=== PATIENT | female | born 1950 | race Caucasian/White ===

== ENCOUNTER → 2019-07-27 10:24 | Outpatient (BNVA) | payer OTHER, SELFPAY | PROVIDERS: Family Provider Family Medicine; PCP Family Medicine; Visit Provider Internal Medicine Rheumatology | DX: M05.9 Rheumatoid arthritis with rheumatoid factor, unspecified (principal); Z79.899 Other long term (current) drug therapy | CPT/HCPCS: 36415; 80076; 82306; 82565; 85651; 86140 ==

== ENCOUNTER → 2019-07-27 10:29 | Outpatient (BNVA) | payer OTHER, SELFPAY | PROVIDERS: Family Provider Family Medicine; PCP Family Medicine; Visit Provider Internal Medicine Rheumatology | DX: M05.79 Rheumatoid arthritis with rheumatoid factor of multiple sites without organ or systems involvement (principal); Z79.899 Other long term (current) drug therapy | CPT/HCPCS: 85025 ==

== ENCOUNTER 2019-09-21 09:56 | Outpatient (CLI) | payer OTHER, SELFPAY ==
[2019-09-21 10:06] VITALS: BP 126/83; PULSE 73; RESP 16; TEMP 36.8; O2SAT 98
[2019-09-21 10:45] VITALS: BP 132/87; PULSE 73; RESP 16
== END 2019-09-21 09:57 | disposition home or self-care (01) ==
LOC: RHEOACUTE 09:59
PROVIDERS: Family Provider Family Medicine; PCP Family Medicine; Visit Provider Internal Medicine Rheumatology
DX: M81.0 Age-related osteoporosis without current pathological fracture (principal)
CPT/HCPCS: 96365; J3489

== ENCOUNTER 2019-10-04 10:13 | Outpatient (CLI) | payer OTHER, SELFPAY ==
[2019-10-04 12:36] LABS: Basophils % 0.4 %; Eosinophils # 0.1 10^3/uL (0.0-0.8); Eosinophils % 2.1 %; Hematocrit 40.9 % (37.0-47.0); Hemoglobin 13.1 g/dL (11.5-15.3); Lymphocytes # 1.5 10^3/uL (0.8-4.8); Lymphocytes % 31.5 %; Mean Corpuscular Hemoglobin 29.2 pg (28.0-34.0); Mean Corpuscular Volume 91.3 fL (81-99); Mean Platelet Volume 9.2 fL (7.4-10.4); Monocytes # 0.5 10^3/uL (0.2-0.9); Monocytes % 9.9 %; Neutrophils # 2.6 10^3/uL (1.8-7.7); Neutrophils % 55.9 %; Nucleated Red Blood Cells % 0 %; Platelet Count 245 10^3/cmm (130-400); Red Blood Count 4.48 10^6/uL (4.1-5.3); Red Cell Distribution Width 13.3 % (12.1-15.1); White Blood Count 4.7 10^3/uL (4.0-10.0)
[2019-10-04 12:51] LABS: Alanine Aminotransferase 26 U/L (0-33); Albumin Level 4.1 g/dL (3.5-5.2); Alkaline Phosphatase 77 IU/L (35-105); Anion Gap 14.3 (5-19); Aspartate Amino Transferase 35 U/L (0-32); Blood Urea Nitrogen 8 mg/dL (8-23); Calcium 8.6 mg/dL (8.5-10.5); Carbon Dioxide 27 mmol/L (22-29); Chloride 93 mmol/L (98-107); Globulin 3.5 g/dL (1.3-4.6); Glomerular Filtration Rate 220.6 mL/min (90-130); Glucose 101 mg/dL (65-115); Immunoglobulin IGA 576 mg/dL (70-400); Immunoglobulin IGG 1617 mg/dL (700-1600); Immunoglobulin IGM 442 mg/dL (40-230); Lactate Dehydrogenase 222 U/L (135-214); Osmolality Calculated 266 mOsm/kg (285-295); Potassium 4.3 mmol/L (3.5-5.1); Sodium 130 mmol/L (136-145); Total Bilirubin 0.4 mg/dL (0.15-1.2); Total Protein 7.6 g/dL (6.6-8.7)
--- NOTE | 2019-10-04 18:46 | ONC CON_ITS ---
Dr. Rivero New Patient Note Patient: Hiwot Cash Unit #: [id number]: 1950 Dicatated By: Ralph Rivero M.D.Date of Visit: October 04, 2019 Onc MED New Patient/Consult Referring Physician: Dr. Bebo Gauthier M.D. Chief Complaint: Monoclonal gammopathy. History of Present Illness: This is a 69 year-old woman with IgM monoclonal gammopathy. This patient has a longstanding history of seropositive rheumatoid arthritis, initially diagnosed in her early 30s. Her disease has been controlled very well with Enbrel, which she initially started 20 years ago. During that time, she was able to taper off steroid therapy. She currently is being followed by Dr. Gauthier. I am asked to see her in regard to an IgM monoclonal gammopathy. This was discovered on a protein electrophoresis study in April 2015, which showed an IgM lambda paraprotein quantitating at 1.10 g/dL. At that time her CBC did show mild anemia with 11.1 g, but with hypochromic/microcytic red cell indices and with serum iron studies showing low transferrin saturation at 8.0%. She has since then been on oral iron supplementation. Her most recent laboratory studies, from 07/27/2019, included CBC showing hemoglobin 12.5 g, white blood cell count 5000, and platelet count 259,000. The red cell indices were normal. Sed rate was moderately elevated at 56 mm/hour with CRP slightly elevated at 5.2 mg/dL. She says that she has been feeling great. She has had significant improvement in her energy level since she started taking Geritol along with her oral iron supplement. She does have limited mobility with her RA, but she is able to do light work. Her ECOG score is 1. Her appetite has been good and her weight has been stable. She has no fever or night sweats. She has chronic sinus drainage and she has a morning cough associated with it. She does not complain of shortness of breath or chest pain. She has no GI or complaints. She does not have joint pain on the Enbrel. She does not complain of headache or dizziness. She has no numbness/paresthesia or other focal neurologic symptoms. Past Medical History: Her medical history includes osteoarthritis, osteoporosis, and rheumatoid arthritis. She also has a history of iron deficiency anemia. Past Surgical History: Her surgical/procedural history includes bilateral knee arthroscopy, right wrist repair in 2019, left hip replacement in 2014, right endoscopic sinus FESS in 2013, total left knee replacement in 2003, D&C in 1999, total right knee replacement in 1997, partial left hip replacement in 1996, corrective surgery on both feet in 1992, tenosynovectomy left hand in 1990, tenosynovectomy right hand in 1989, caesarean section in 1979, tubal ligation in 1979, and tonsillectomy in 1963. Medications: B Complex Plus 1 Tablet Oral daily, Calcium 1 Tablet (of 600 ) Oral b.i.d., calcium magnesium zinc 1 Tablet daily, Cetirizine HCl 1 Tablet (of 10 mg) Oral daily, Diclofenac Sodium 1 Tablet (of 75 mg) Tablet, enteric coated Oral daily, Enbrel 1 (50 mg/mL) Subcutaneous q 7 weeks, Ferrous Sulfate 3 Tablet (of 325 (65 fe) mg) Oral daily, Fish Oil 1 Capsule Oral daily, Flonase 2 Labelle(s) (of 50 mcg/act) Suspension Nasal daily, Multivitamin Adult 1 Tablet Oral daily, Omeprazole 1 Capsule (of 40 mg) Capsule Delayed Release Oral b.i.d., Reclast 1 Intravenous q 52 weeks, traMADol HCl 1 - 2 Tablet (of 50 mg) Oral daily PRN, vitamin b with iron 1 tsp Syrup Oral daily Allergies: Morphine Sulfate Social History: Ms. Cash is single and she is retired. She is a non-smoker. She does not drink alcohol. Family History: Father of emphysema at age 85. Mother at age 91 with chronic lung disease associated with asthma. A sister at age 21 with complications of asthma and apparently heart disease. A brother and another sister also have asthma. Two paternal uncles had lung cancer. Both had worked in a coal mine. Review Of Symptoms: Constitutional - She feels great, but her activity is limited. Appetite is good and weight is stable. No fever, chills, hot flashes, or night sweats. ECOG score is 1, Eyes - No change in vision, ENMT - She has hearing loss. No tinnitus. She has chronic sinus congestion/drainage. She occasionally has sore mouth. No sore throat or difficulty swallowing, Hematologic/Lymphatic - No abnormal bruising or bleeding, Respiratory - No shortness of breath. She has cough in the morning associated with her sinus drainage. No pleuritic pain or hemoptysis, Cardiovascular - No angina pain. No palpitations, Gastrointestinal - No nausea or vomiting. No heartburn or acid reflux. No diarrhea or constipation. No blood in the stool or black stools, Genitourinary (F) - No dysuria or hematuria. No urinary frequency. No urgency or incontinence, Musculoskeletal - She has chronic joint deformity and limited mobility, but she has no joint pain on the Enbrel, Integumentary - She has occasional flareups of eczema, Neurologic - No headache or dizziness. No numbness/paresthesias or other focal neurologic symptoms, Psychiatric - No anxiety or depression. No insomnia. Vital Signs: Performed on October 04, 2019 11:02: 0, 24.76, 1.54 sq.m, 60.00 in, 97 %, 73 /min, 18 /min, 149/91 mm(hg) (HIGH), 98.1 F (LOW), and 126.8 lbs (HIGH). Physical Examination: Constitutional - She looks pretty good generally, Eyes - Sclerae nonicteric. Conjunctivae clear, ENMT - No lesions noted in the oral cavity, Neck - No mass or thyromegaly, Hematologic/Lymphatic - No cervical, clavicular, or axillary adenopathy, Respiratory - Lungs are clear with good air movement bilaterally, Cardiovascular - Heart rhythm is regular. There is no murmur, gallop, or rub noted, Abdomen - Soft and non-tender. Liver and spleen are not enlarged. There is no abdominal mass or ascites noted and there is no inguinal adenopathy, Back/Spine - No spine or CVA tenderness noted, Extremities - No edema. There are severe RA changes in both hands and both feet. Dorsalis pedis are palpable bilaterally, Integumentary - No rashes. No suspicious skin lesions noted, Neurologic - No focal neurologic deficits noted. Impression: 1. Patient with IgM monoclonal gammopathy of undetermined significance. She does not appear to be symptomatic with it, but Waldenstrom's macroglobulinemia or other lymphoproliferative disorder would need to be excluded. 2. She has longstanding rheumatoid arthritis which has been well controlled on treatment with Enbrel. Her other medical illnesses include: 3. Osteoarthritis. 4. Osteoporosis. 5. She has a history of iron deficiency anemia. Plan: The laboratory findings and clinical implications were reviewed with the patient. She was found to have an IgM monoclonal protein in April 2015. The significance is uncertain. She has not previously had any evaluation for it. However, it does not appear to be symptomatic. At this point she will have additional laboratory studies to include CBC, comprehensive metabolic profile, RA titer, repeat protein electrophoresis with immunofixation, quantitative immunoglobulin levels, and a serum viscosity study. If she is confirmed to have a monoclonal M protein, she will be scheduled for CT scans of the chest, abdomen, and pelvis. Based on those findings, I will determine then whether to schedule her for bone marrow aspiration/biopsy. However, in the setting of asymptomatic disease, she will likely be followed on observation/expectant management. Signed By: Ralph Rivero M.D. <<Signature on File>>
[2019-10-05 10:12] LABS: PROTEIN, TOTAL 7.5 g/dL (6.1-8.1)
[2019-10-05 13:37] LABS: ALBUMIN 3.8 g/dL (3.8-4.8); ALPHA 1 GLOBULIN 0.3 g/dL (0.2-0.3); ALPHA 2 GLOBULIN 0.7 g/dL (0.5-0.9); BETA 1 GLOBULIN 0.5 g/dL (0.4-0.6); BETA 2 GLOBULIN 0.6 g/dL (0.2-0.5); GAMMA GLOBULIN 1.7 g/dL (0.8-1.7)
== END 2019-10-04 10:14 | disposition home or self-care (01) ==
PROVIDERS: PCP Family Medicine; Referring Provider Internal Medicine Rheumatology; Visit Provider Internal Medicine Medical Oncology
DX: D47.2 Monoclonal gammopathy (principal); M06.9 Rheumatoid arthritis, unspecified; M19.90 Unspecified osteoarthritis, unspecified site; M81.0 Age-related osteoporosis without current pathological fracture; Z79.899 Other long term (current) drug therapy; Z86.2 Personal history of diseases of the blood and blood-forming organs and certain disorders involving the immune mechanism
CPT/HCPCS: 80053; 82784; 83615; 84155; 84165; 85025; 85810; 86431; 99205

== ENCOUNTER → 2020-02-14 15:53 | Outpatient (BNVA) | payer OTHER, SELFPAY | PROVIDERS: PCP Family Medicine; Visit Provider Internal Medicine Rheumatology | DX: M05.79 Rheumatoid arthritis with rheumatoid factor of multiple sites without organ or systems involvement (principal); M81.0 Age-related osteoporosis without current pathological fracture; Z79.899 Other long term (current) drug therapy | CPT/HCPCS: 99214 ==

== ENCOUNTER → 2020-02-15 13:17 | Outpatient (BNVA) | payer OTHER, SELFPAY | PROVIDERS: PCP Family Medicine; Visit Provider Internal Medicine Rheumatology | DX: Z79.899 Other long term (current) drug therapy (principal) | CPT/HCPCS: 36415; 80076; 82306; 82565; 85025; 85651; 86140 ==

== ENCOUNTER 2020-03-01 14:09 | Outpatient (CLI) | payer OTHER, SELFPAY ==
--- NOTE | 2020-03-01 14:16 | XR_ITS ---
WS: [id number] Right hip, AP and frog leg views, AP pelvis, 03/01/2020 Clinical Data: PAIN IN R HIP Comparison: None. Findings: Bilateral hip arthroplasties are in position. The right hip arthroplasty shows no loosening. There is a transverse line in the proximal right femur and the patient could have a cortical fracture which has occurred recently. No displacement is seen. The SI joints and pubic symphysis are unremarkable. There is an old left ischial ramus fracture. The bladder is full. There is fecal material in the colon and rectum. XR/XR hip RT 2-3V wo/w pel* [id number] Impression: 1. Possible undisplaced cortical fracture of the proximal right femur. Recommen d comparing old studies if available. 2. Bilateral hip arthroplasties.
== END 2020-03-01 14:10 | disposition home or self-care (01) ==
LOC: RAD 14:12
PROVIDERS: PCP Family Medicine; Visit Provider Family Medicine
DX: M25.551 Pain in right hip (principal); Z96.643 Presence of artificial hip joint, bilateral
CPT/HCPCS: 73502

== ENCOUNTER → 2020-06-11 10:00 | Outpatient (BNVA) | payer OTHER, SELFPAY | PROVIDERS: PCP Family Medicine; Visit Provider Internal Medicine Rheumatology | DX: Z79.899 Other long term (current) drug therapy (principal); M19.90 Unspecified osteoarthritis, unspecified site; Z51.81 Encounter for therapeutic drug level monitoring | CPT/HCPCS: 36415; 80076; 82565; 85025; 85651; 86140 ==

== ENCOUNTER 2020-09-11 10:38 | Outpatient (CLI) | payer OTHER, SELFPAY ==
--- NOTE | 2020-09-11 11:59 | ONC FU_ITS ---
Dr. Rivero Patient Follow-Up Note Patient: Hiwot Cash Unit #: [id number]: 1950 Dicatated By: Ralph Rivero M.D.Date of Visit:September 11, 2020 Onc Med Follow-up/Prog Note Chief Complaint: Monoclonal gammopathy. History of Present Illness: This is a 70 year-old woman with IgM monoclonal gammopathy. This patient has a longstanding history of seropositive rheumatoid arthritis, initially diagnosed in her early 30s. Her disease has been controlled very well with Enbrel, which she initially started 20 years ago. During that time, she was able to taper off steroid therapy. She is being followed by Dr. Gauthier. I had initially seen her in August 2020 in regard to an IgM monoclonal gammopathy. It wa first discovered on a protein electrophoresis study in April 2015, which showed an IgM lambda paraprotein quantitating at 1.10 g/dL. At that time her CBC did show mild anemia with 11.1 g, but with hypochromic/microcytic red cell indices and with serum iron studies showing low transferrin saturation at 8.0%. She then began on oral iron supplementation. Her laboratory studies from September 2019 included CBC showing hemoglobin 13.1 g with white blood cell count 4700 and platelet count 245,000. The red cell indices were normal. Comprehensive metabolic profile showed normal renal function with BUN 8 and creatinine 0.3 mg/dL. The SGOT was slightly elevated at 35/30 2U/L. The other liver enzymes were normal. LDH was slightly elevated at 220 2U/L. Protein electrophoresis showed no evidence of monoclonal protein. Her quantitative immunoglobulin levels showed IgG 1617 mg/dL, IgA 576 mg/dL, and IgM 442 mg/dL. With those findings, I did not recommend any further evaluation. On a recent followup visit with Dr. Bose her CBC showed normal hemoglobin 13.5 g but with her serum iron studies showing low transferrin saturation at 15%. Her TSH level was mildly elevated, and she did start replacement therapy with levothyroxine. She also was noted to have a lesion on her tongue, and she will be seeing Dr. Guillermo Corrales next week to have that evaluated. She is seen now for a follow-up visit. She has noted improvement in her energy since she started on the levothyroxine. She still has some fatigue, and she has daily horizontal time every afternoon for 15 to 20 minutes. Appetite is somewhat variable, but generally pretty good. Her weight is stable. She has no fever or night sweats. She always has sinus drainage. She does not report having sore mouth or throat, and she has no difficulty swallowing. She has no shortness of breath, cough, or chest pain. She has occasional acid reflux symptoms. She has no other GI or complaints. She says her shoulders are acting their age . She has no other joint or bone pain. She does not complain of headache. She sometimes has dizziness. She has no numbness/paresthesia or other focal neurologic symptoms. Medications: B Complex Plus 1 Tablet Oral daily, Calcium 1 Tablet (of 600 ) Oral b.i.d., calcium magnesium zinc 1 Tablet daily, Cetirizine HCl 1 Tablet (of 10 mg) Oral daily, Enbrel 1 (50 mg/mL) Subcutaneous q 7 weeks, Ferrous Sulfate 3 Tablet (of 325 (65 fe) mg) Oral daily, Fish Oil 1 Capsule Oral daily, Flonase 2 Frost(s) (of 50 mcg/act) Suspension Nasal daily, Levothyroxine Sodium 1 Tablet (of 25 mcg) Oral daily, Multivitamin Adult 1 Tablet Oral daily, Reclast 1 Intravenous q 52 weeks, traMADol HCl 1 - 2 Tablet (of 50 mg) Oral daily PRN Allergies: Morphine Sulfate Vital Signs: Performed on September 11, 2020 11:04 Height - 60.00 in Weight - 126.6 lbs (LOW) BSA - 1.54 sq.m BMI - 24.73 Temperature - 98.8 F Pulse - 78 /min Respiration - 17 /min BP - 129/84 mm(hg) O2 Sat - 98 % Pain - 0 Physical Examination: Constitutional - She looks pretty good generally, Eyes - Sclerae nonicteric. Conjunctivae clear, ENMT - There is a small lesion on the right lateral border of the tongue. There is a slight white discoloration associated with it, Hematologic/Lymphatic - No cervical, clavicular, or axillary adenopathy, Respiratory - Lungs are clear with good air movement bilaterally, Cardiovascular - Heart rhythm is regular with occasional premature beats. There is no murmur, gallop, or rub noted, Abdomen - Soft and non-tender. Liver and spleen are not enlarged. There is no abdominal mass or ascites noted and there is no inguinal adenopathy, Extremities - No edema. There are severe RA changes in both hands and both feet, Neurologic - No focal neurologic deficits noted. Problem List: 1. Patient with IgM monoclonal gammopathy of undetermined significance. She does not appear to be symptomatic with it, but Waldenstrom's macroglobulinemia or other lymphoproliferative disorder would need to be excluded. 2. She has a history of iron deficiency anemia. 3. She has longstanding rheumatoid arthritis which has been well controlled on treatment with Enbrel. 4. Osteoarthritis. 5. Osteoporosis. 6. Hypothyroidism. Problems Addressed with this Encounter and Plan: 1. Patient with IgM monoclonal gammopathy of undetermined significance. This had previously been detectable by protein electrophoresis, but it was not evident on a repeat study in September 2019. As such, it may just be related to her underlying autoimmune disease. At this point I will recheck her serum protein electrophoresis, serum free light chain assay, and quantitative immunoglobulin levels. She will have further evaluation as indicated. 2. She has a history of iron deficiency anemia. Her recent laboratory studies showed evidence of iron deficiency with transferrin saturation 15%. Her hemoglobin/hematocrit levels have just been borderline low to slightly decreased. I will repeat her CBC, CMP, serum iron studies, and ferritin today. In addition, I will check B12 and folate levels. She will have further evaluation as indicated. 3. She has lesion on the right lateral border of the tongue. There is some associated whitish discoloration. I will treat that empirically with nystatin. She is going to have ENT evaluation with Dr. Guillermo Corrales next week. Signed By: Ralph Rivero M.D. <<Signature on File>>
[2020-09-11 12:22] LABS: Basophils % 0.7 %; Eosinophils # 0.2 10^3/uL (0.0-0.8); Hematocrit 41.3 % (37.0-47.0); Hemoglobin 13.3 g/dL (11.5-15.3); Lymphocytes # 1.3 10^3/uL (0.8-4.8); Lymphocytes % 31.8 %; Mean Corpuscular HGB Conc 32.2 g/dL (30.0-36.0); Mean Corpuscular Hemoglobin 29.2 pg (28.0-34.0); Mean Corpuscular Volume 90.8 fL (81-99); Mean Platelet Volume 9.6 fL (7.4-10.4); Monocytes # 0.5 10^3/uL (0.2-0.9); Monocytes % 12.2 %; Neutrophils # 2.06 10^3/uL (1.8-7.7); Neutrophils % 51.1 %; Nucleated Red Blood Cells % 0 %; Platelet Count 227 10^3/cmm (130-400); Red Blood Count 4.55 10^6/uL (4.1-5.3); Red Cell Distribution Width 13.2 % (12.1-15.1)
[2020-09-11 12:32] LABS: Alanine Aminotransferase 18 U/L (0-33); Albumin Level 3.7 g/dL (3.5-5.2); Alkaline Phosphatase 77 IU/L (35-105); Anion Gap 10.1 (5-19); Aspartate Amino Transferase 28 U/L (0-32); Blood Urea Nitrogen 6 mg/dL (8-23); C Reactive Protein 6.4 mg/L (0.0-4.9); Calcium 9.1 mg/dL (8.5-10.5); Carbon Dioxide 30 mmol/L (22-29); Chloride 98 mmol/L (98-107); Ferritin 347 ng/mL (15-150); Globulin 3.7 g/dL (1.3-4.6); Glomerular Filtration Rate 219.9 mL/min (90-130); Glucose 99 mg/dL (65-115); Iron 42 ug/dL (37-145); Osmolality Calculated 276 mOsm/kg (285-295); Potassium 4.1 mmol/L (3.5-5.1); Sodium 134 mmol/L (136-145); Total Bilirubin 0.4 mg/dL (0.15-1.2); Total Iron Binding Capacity 209 mcg/dl; Total Protein 7.4 g/dL (6.6-8.7); Unsaturated Iron Binding 167 ug/dL (112-347)
[2020-09-11 12:45] LABS: Vitamin B12 1218 pg/mL (232-1245)
[2020-09-11 13:12] LABS: Folate Level > 20.0 ng/mL (4.8-37.3)
[2020-09-11 13:26] LABS: Immunoglobulin IGA 584 mg/dL (70-400); Immunoglobulin IGG 1630 mg/dL (700-1600); Immunoglobulin IGM 444 mg/dL (40-230)
[2020-09-11 15:16] LABS: Erythrocyte Sedimentation Rate 70 mm/hr (0-15)
[2020-09-12 07:42] LABS: PROTEIN, TOTAL 7.5 g/dL (6.1-8.1)
[2020-09-12 15:28] LABS: ALBUMIN 3.6 g/dL (3.8-4.8); ALPHA 1 GLOBULIN 0.3 g/dL (0.2-0.3); ALPHA 2 GLOBULIN 0.6 g/dL (0.5-0.9); BETA 1 GLOBULIN 0.6 g/dL (0.4-0.6); BETA 2 GLOBULIN 0.6 g/dL (0.2-0.5); GAMMA GLOBULIN 1.8 g/dL (0.8-1.7)
[2020-09-12 16:03] LABS: KAPPA LIGHT CHAIN, FREE, SERUM 53.6 mg/L (3.3-19.4); KAPPA/LAMBDA LIGHT CHAINS FREE 1.39 (0.26-1.65); LAMBDA LIGHT CHAIN, FREE, SERU 38.7 mg/L (5.7-26.3)
== END 2020-09-11 10:39 | disposition home or self-care (01) ==
PROVIDERS: PCP Family Medicine; Visit Provider Internal Medicine Medical Oncology
DX: C88.0 Waldenstrom macroglobulinemia (principal); D47.2 Monoclonal gammopathy; D50.9 Iron deficiency anemia, unspecified; D51.9 Vitamin B12 deficiency anemia, unspecified; M06.9 Rheumatoid arthritis, unspecified; M81.0 Age-related osteoporosis without current pathological fracture; E03.9 Hypothyroidism, unspecified; Z79.899 Other long term (current) drug therapy
CPT/HCPCS: 36415; 80053; 82607; 82728; 82746; 82784; 83540; 83550; 83883; 84155; 84165; 85025; 85651; 86140; 99214

== ENCOUNTER 2020-09-16 14:42 | Outpatient (CLI) | payer OTHER, SELFPAY ==
--- NOTE | 2020-09-16 15:15 | XR_ITS ---
WS: [id number] SCREENING DEXA SCAN [facility] CLINICAL INFORMATION: M81.0 - Age-related osteoporosis without current pathological fracture COMPARISON: FINDINGS: The L1-L4 bone mineral density measures 0.815 g/cm2. This corresponds to a T score score of -3.0 and Z score of -1.1. History of bilateral ALMAZ and prior hardware fusion forearm XR/XR DEXA axial skeleton* [id number] IMPRESSION: Osteoporosis
== END 2020-09-16 14:43 | disposition home or self-care (01) ==
LOC: RADWPI 14:45
PROVIDERS: PCP Family Medicine; Visit Provider Internal Medicine Rheumatology
DX: M81.0 Age-related osteoporosis without current pathological fracture (principal); Z79.899 Other long term (current) drug therapy; M05.79 Rheumatoid arthritis with rheumatoid factor of multiple sites without organ or systems involvement
CPT/HCPCS: 77080

== ENCOUNTER 2020-09-27 15:10 | Emergency (ER) | payer OTHER, SELFPAY ==
--- NOTE | 2020-09-27 | XRR_ITS ---
PROCEDURE INFORMATION: Exam: XR Chest Exam date and time: 09/27/2020 5:59 PM Age: 70 years old Clinical indication: Cough and dyspnea; Patient HX: PT feels light headed/dizzy, could not find keys on keyboard. Fell/hit head 08/14/20 TECHNIQUE: Imaging protocol: XR of the chest. Views: 1 view. COMPARISON: CR Chest 2 views* [id number] 03/08/2014 4:07 PM FINDINGS: Lungs: There is increased interstitial prominence compared to the prior exam compatible with mild fibrosis, bronchitis, viral pneumonitis or mild interstitial edema. The lungs are hyperinflated compatible with COPD. No lobar consolidation. Pleural spaces: Unremarkable. No pleural effusion. No pneumothorax. Heart/Mediastinum: There is borderline cardiomegaly. Vasculature: The aorta is ectatic with atherosclerotic calcifications. Bones/joints: Severe degenerative changes and deformity of both glenohumeral joints are noted unchanged since the prior exam. The findings on the right could reflect Charcot deformity. No acute bony abnormality. XR/XR chest 1V portable [id number] IMPRESSION: There is increased interstitial prominence compared to the prior exam compatible with mild fibrosis, bronchitis, viral pneumonitis or mild interstitial edema.
[2020-09-27 15:17] VITALS: BP 146/89; PULSE 103; RESP 18; TEMP 36.8; O2SAT 97; BMI 24.4
--- NOTE | 2020-09-27 16:15 | ECG_ITS ---
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
[2020-09-27 16:20] VITALS: BP 152/79; PULSE 90; RESP 18; O2SAT 98
--- NOTE | 2020-09-27 16:41 | W.ED.AMS ---
Documented by User: Chino Marcus DO 10/02/20 07:17 HPI - Altered Mental Status General: Chief Complaint: Altered Mental Status Stated Complaint: SUDDEN MEMORY LOSS/SENT BY PCP OFFICE Time Seen by Provider: 09/27/20 16:14 History of Present Illness: HPI narrative: 70-year-old female presents to the emergency room with complaint of sudden memory loss. States she could not do it normally do everything and she has been able to remember and do everything else today with the exception of while she was sitting down typewriter she cannot remember where the keys different letters were. She has very severe rheumatoid arthritis. She states she has not had any chest pain she not had any shortness of breath no trauma no falls recently. No fever sweats chills. MD complaint: altered mental status and confusion Onset (ago): hour(s) Severity: mild Associated symptoms: Deny auditory hallucinations, visual hallucinations, delusions, depression, homicidal ideation, racing thoughts or suicidal ideation Review of Systems Const: Denies: fever(s), chills, body aches, change in appetite, fatigue or malaise ENMT: Denies: throat pain, ear or mastoid pain, nasal discharge or nasal congestion Card: Denies: chest pain, edema, dyspnea on exertion or orthopnea Resp: Denies: dyspnea, productive cough or non-productive cough GI: Denies: abdominal pain, nausea, vomiting, hematemesis, coffee ground emesis, diarrhea, constipation, bloating, hematochezia or melena : Denies: flank pain, difficulty voiding, dysuria, urinary frequency or urinary urgency Skin/Breast: Denies: rash or pruritus Psych: Denies: depression, visual hallucinations, auditory hallucinations, suicidal ideation or homicidal ideation PFS ED PFSH: Medical History High risk medication use History of revision of total replacement of left hip joint Immunization counseling Immunosuppression Osteoarthritis of left shoulder Osteoporosis Seropositive rheumatoid arthritis of multiple joints Surgical History History of bilateral hip replacements History of bilateral knee arthroplasty Social History Smoking and tobacco status: never smoked Alcohol intake: never Physical Exam Psych: THOUGHT CONTENT: No delusions Course Vital Signs: Vital signs: Vital Signs Temperature 98.2 F 09/27/20 15:17 Pulse Rate 85 09/27/20 19:58 Respiratory Rate 16 09/27/20 19:58 Blood Pressure 135/84 09/27/20 19:58 Pulse Oximetry 98 09/27/20 19:58 MDM - Altered Mental Status MDM Narrative: Medical decision making narrative: Patient has severe rheumatoid arthritis. She her stroke score is 0. She had a transient episode of memory loss she describes as brain fog. She was dizzy and lightheaded. Head CT is unremarkable were still waiting on some other lab work care turned over to Dr. Boyce at change of shift. Lab Data: Labs: Lab Results 09/27/20 09/27/20 09/27/20 Range/Units 16:35 16:55 16:55 WBC 5.5 (4.0-10.0) 10^3/ uL RBC 4.48 (4.1-5.3) 10^6/u L Hgb 12.9 (11.5-15.3) g/dL Hct 39.9 (37.0-47.0) % MCV 89.1 (81-99) fL MCH 28.8 (28.0-34.0) pg MCHC 32.3 (30.0-36.0) g/dL RDW 13.2 (12.1-15.1) % Plt Count 202 (130-400) 10^3/c mm MPV 10.0 (7.4-10.4) fL Neut % (Auto) 59.7 % Lymph % (Auto) 25.3 % Alger % (Auto) 13.0 % Eos % (Auto) 1.4 % Baso % (Auto) 0.4 % Neut # (Auto) 3.31 (1.8-7.7) 10^3/u L Lymph # (Auto) 1.4 (0.8-4.8) 10^3/u L Alger # (Auto) 0.7 (0.2-0.9) 10^3/u L Eos # (Auto) 0.1 (0.0-0.8) 10^3/u L Baso # (Auto) 0.0 (0.0-0.1) 10^3/u L Nucleated RBC % (a uto) 0 % Nucleated RBCs # 0.0 /100WBC Specimen Type Arterial Sample Site Radial, right ABG pH 7.47 H (7.35-7.45) ABG pCO2 40.1 (35-45) mmHg ABG pO2 85.0 (80.0-100.0) mmH g ABG HCO3 29.2 H (22-26) mmol/L ABG O2 Saturation 97.9 ABG Base Excess 5.2 H (-2.0-2.0) mmol/ L Phillip Test Pos A-a O2 Gradient 2.1 L (5-10) mmHg Hematocrit 44.9 (37-47) % Hgb O2 Saturation 96.4 (95-100) % Carboxyhemoglobin 0.9 (0.4-20.1) %THgb Methemoglobin 0.7 (0.4-1.5) % Total Hemoglobin 14.7 (12-16) g/dL Sodium 133.0 (131-143) mmol/L Potassium 3.9 (3.5-5.0) mmol/L Glucose 186.0 H (70-115) mg/dL Ionized Calcium 1.2 (1.1-1.4) mmol/L O2 Delivery Device Room air FiO2 21.0 % [employer] Member ID Gd Chloride (98-107) mmol/L Carbon Dioxide (22-29) mmol/L Anion Gap (5-19) BUN (8-23) mg/dL Creatinine (0.5-0.9) mg/dL GFR Calculation (90-130) mL/min Calculated Osmolal ity (285-295) mOsm/k g Lactic Acid 1.5 (0.5-2.2) mmol/L Calcium (8.5-10.5) mg/dL Total Bilirubin (0.15-1.2) mg/dL AST (0-32) U/L ALT (0-33) U/L Alkaline Phosphata se (35-105) IU/L Creatine Kinase (26-192) U/L Troponin T Baselin e (0-10) ng/L Troponin T 120 Min augustine (0-10) ng/L Delta Troponin T (0-10) ABS# Total Protein (6.6-8.7) g/dL Albumin (3.5-5.2) g/dL Globulin (1.3-4.6) g/dL Lipase (13-60) U/L Urine Color (Yellow) Urine Appearance (CLEAR) Urine pH (5-7) Ur Specific Gravit y (1.005-1.030) Urine Protein (Negative) Urine Glucose (UA) (Normal) Urine Ketones (Negative) Urine Blood (Negative) Urine Nitrate (Negative) Urine Bilirubin (Negative) Urine Urobilinogen (Negative) mg/dL Ur Leukocyte Yojana ase (Negative) Urine RBC (0-2) /hpf Urine WBC (0-5) /hpf Ur Squamous Epith Cells (0-5) /hpf Amorphous Sediment Urine Bacteria (NONE) /hpf 09/27/20 09/27/20 09/27/20 Range/Units 16:55 16:55 17:23 WBC (4.0-10.0) 10^3/ uL RBC (4.1-5.3) 10^6/u L Hgb (11.5-15.3) g/dL Hct (37.0-47.0) % MCV (81-99) fL MCH (28.0-34.0) pg MCHC (30.0-36.0) g/dL RDW (12.1-15.1) % Plt Count (130-400) 10^3/c mm MPV (7.4-10.4) fL Neut % (Auto) % Lymph % (Auto) % Alger % (Auto) % Eos % (Auto) % Baso % (Auto) % Neut # (Auto) (1.8-7.7) 10^3/u L Lymph # (Auto) (0.8-4.8) 10^3/u L Alger # (Auto) (0.2-0.9) 10^3/u L Eos # (Auto) (0.0-0.8) 10^3/u L Baso # (Auto) (0.0-0.1) 10^3/u L Nucleated RBC % (a uto) % Nucleated RBCs # /100WBC Specimen Type Sample Site ABG pH (7.35-7.45) ABG pCO2 (35-45) mmHg ABG pO2 (80.0-100.0) mmH g ABG HCO3 (22-26) mmol/L ABG O2 Saturation ABG Base Excess (-2.0-2.0) mmol/ L Phillip Test A-a O2 Gradient (5-10) mmHg Hematocrit (37-47) % Hgb O2 Saturation (95-100) % Carboxyhemoglobin (0.4-20.1) %THgb Methemoglobin (0.4-1.5) % Total Hemoglobin (12-16) g/dL Sodium 132 L (131-143) mmol/L Potassium 4.2 (3.5-5.0) mmol/L Glucose 169 H (70-115) mg/dL Ionized Calcium (1.1-1.4) mmol/L O2 Delivery Device FiO2 % [employer] Member ID Chloride 95 L (98-107) mmol/L Carbon Dioxide 24 (22-29) mmol/L Anion Gap 17.2 (5-19) BUN 9 (8-23) mg/dL Creatinine 0.3 L (0.5-0.9) mg/dL GFR Calculation 219.9 H (90-130) mL/min Calculated Osmolal ity 277 L (285-295) mOsm/k g Lactic Acid (0.5-2.2) mmol/L Calcium 8.8 (8.5-10.5) mg/dL Total Bilirubin 0.4 (0.15-1.2) mg/dL AST 33 H (0-32) U/L ALT 18 (0-33) U/L Alkaline Phosphata se 64 (35-105) IU/L Creatine Kinase 144 (26-192) U/L Troponin T Baselin e 19 H (0-10) ng/L Troponin T 120 Min augustine (0-10) ng/L Delta Troponin T (0-10) ABS# Total Protein 7.6 (6.6-8.7) g/dL Albumin 3.8 (3.5-5.2) g/dL Globulin 3.8 (1.3-4.6) g/dL Lipase 24 (13-60) U/L Urine Color Yellow (Yellow) Urine Appearance Clear (CLEAR) Urine pH 6 (5-7) Ur Specific Gravit y 1.015 (1.005-1.030) Urine Protein Neg (Negative) Urine Glucose (UA) Norm (Normal) Urine Ketones Negative (Negative) Urine Blood 2+ H (Negative) Urine Nitrate Negative (Negative) Urine Bilirubin Neg (Negative) Urine Urobilinogen Norm (Negative) mg/dL Ur Leukocyte Yojana ase Trace H (Negative) Urine RBC 0-4 H (0-2) /hpf Urine WBC 0-4 H (0-5) /hpf Ur Squamous Epith Cells 0-4 H (0-5) /hpf Amorphous Sediment Not Reportable Urine Bacteria Trace (NONE) /hpf 09/27/20 Range/Units 19:00 WBC (4.0-10.0) 10^3/ uL RBC (4.1-5.3) 10^6/u L Hgb (11.5-15.3) g/dL Hct (37.0-47.0) % MCV (81-99) fL MCH (28.0-34.0) pg MCHC (30.0-36.0) g/dL RDW (12.1-15.1) % Plt Count (130-400) 10^3/c mm MPV (7.4-10.4) fL Neut % (Auto) % Lymph % (Auto) % Alger % (Auto) % Eos % (Auto) % Baso % (Auto) % Neut # (Auto) (1.8-7.7) 10^3/u L Lymph # (Auto) (0.8-4.8) 10^3/u L Alger # (Auto) (0.2-0.9) 10^3/u L Eos # (Auto) (0.0-0.8) 10^3/u L Baso # (Auto) (0.0-0.1) 10^3/u L Nucleated RBC % (a uto) % Nucleated RBCs # /100WBC Specimen Type Sample Site ABG pH (7.35-7.45) ABG pCO2 (35-45) mmHg ABG pO2 (80.0-100.0) mmH g ABG HCO3 (22-26) mmol/L ABG O2 Saturation ABG Base Excess (-2.0-2.0) mmol/ L Phillip Test A-a O2 Gradient (5-10) mmHg Hematocrit (37-47) % Hgb O2 Saturation (95-100) % Carboxyhemoglobin (0.4-20.1) %THgb Methemoglobin (0.4-1.5) % Total Hemoglobin (12-16) g/dL Sodium (131-143) mmol/L Potassium (3.5-5.0) mmol/L Glucose (70-115) mg/dL Ionized Calcium (1.1-1.4) mmol/L O2 Delivery Device FiO2 % [employer] Member ID Chloride (98-107) mmol/L Carbon Dioxide (22-29) mmol/L Anion Gap (5-19) BUN (8-23) mg/dL Creatinine (0.5-0.9) mg/dL GFR Calculation (90-130) mL/min Calculated Osmolal ity (285-295) mOsm/k g Lactic Acid (0.5-2.2) mmol/L Calcium (8.5-10.5) mg/dL Total Bilirubin (0.15-1.2) mg/dL AST (0-32) U/L ALT (0-33) U/L Alkaline Phosphata se (35-105) IU/L Creatine Kinase (26-192) U/L Troponin T Baselin e (0-10) ng/L Troponin T 120 Min augustine 17.52 H (0-10) ng/L Delta Troponin T -1.48 L (0-10) ABS# Total Protein (6.6-8.7) g/dL Albumin (3.5-5.2) g/dL Globulin (1.3-4.6) g/dL Lipase (13-60) U/L Urine Color (Yellow) Urine Appearance (CLEAR) Urine pH (5-7) Ur Specific Gravit y (1.005-1.030) Urine Protein (Negative) Urine Glucose (UA) (Normal) Urine Ketones (Negative) Urine Blood (Negative) Urine Nitrate (Negative) Urine Bilirubin (Negative) Urine Urobilinogen (Negative) mg/dL Ur Leukocyte Yojana ase (Negative) Urine RBC (0-2) /hpf Urine WBC (0-5) /hpf Ur Squamous Epith Cells (0-5) /hpf Amorphous Sediment Urine Bacteria (NONE) /hpf Discharge Plan Discharge Patient Disposition: Home Clinical Impression: Altered mental status Condition: Stable Prescriptions: No Action ferrous sulfate 325 mg (65 mg iron) tablet 325 mg PO DAILY@0600 RF: 0 calcium carbonate 600 mg calcium (1,500 mg) tablet 600 mg PO BID@0600,1800 RF: 0 omega-3 fatty acids 1,250 mg capsule 2,500 mg PO DAILY@0600 RF: 0 multivitamin Tablet 1 tab PO DAILY RF: 0 Zyrtec 10 mg capsule 10 mg PO DAILY@0600 RF: 0 ergocalciferol (vitamin D2) 1,250 mcg (50,000 unit) capsule 1,250 mcg PO Q7D RF: 0 Calcium 300 300 mg (750 mg) Tablet,Chewable 300 tab PO DAILY@0600 RF: 0 levothyroxine 25 mcg Tablet 25 mcg PO DAILY@0500 RF: 0 fluocinonide 0.05 % Cream 1 applic TOPICAL BID RF: 0 Geritol See Rx Instructions .ROUTE .COMPLEX RF: 0 olive oil 1 tsp PO DAILY@0600 RF: 0 Enbrel 50 mg/mL (1 mL) syringe 50 mg SUBCUT Q10D RF: 0 Discharge Orders: Discharge ED (Routine); Ordered 09/27/20 Ordered By: Buddy Boyce Referrals: Donna Bose MD [Primary Care Provider] - 1-3 days Discharge Diet: Advance as tolerated Discharge Activity: Resume usual activity Patient Instructions: Altered Mental Status (ED) Coding Level of Care Code ED [employer] for Chg Fwd Exam Problem Focused Documented by User: Buddy Boyce MD 09/27/20 19:50 HPI - Altered Mental Status General: Chief Complaint: Altered Mental Status Stated Complaint: SUDDEN MEMORY LOSS/SENT BY PCP OFFICE Time Seen by Provider: 09/27/20 16:14 PFSH ED PFSH: Medical History High risk medication use History of revision of total replacement of left hip joint Immunization counseling Immunosuppression Osteoarthritis of left shoulder Osteoporosis Seropositive rheumatoid arthritis of multiple joints Surgical History History of bilateral hip replacements History of bilateral knee arthroplasty Social History Smoking and tobacco status: never smoked Alcohol intake: never Course Vital Signs: Vital signs: Vital Signs Temperature 98.2 F 09/27/20 15:17 Pulse Rate 85 09/27/20 19:58 Respiratory Rate 16 09/27/20 19:58 Blood Pressure 135/84 09/27/20 19:58 Pulse Oximetry 98 09/27/20 19:58 MDM - Altered Mental Status MDM Narrative: Medical decision making narrative: Patient presents here with some confusion that is since resolved. I took patient over from Dr. Schwarz to follow CT scan which is negative. Her blood work here looks normal as well. She is stable for discharge and is to follow-up with PCP in 2 to 4 days return if worsening. Lab Data: Labs: Lab Results 09/27/20 09/27/20 09/27/20 Range/Units 16:35 16:55 16:55 WBC 5.5 (4.0-10.0) 10^3/ uL RBC 4.48 (4.1-5.3) 10^6/u L Hgb 12.9 (11.5-15.3) g/dL Hct 39.9 (37.0-47.0) % MCV 89.1 (81-99) fL MCH 28.8 (28.0-34.0) pg MCHC 32.3 (30.0-36.0) g/dL RDW 13.2 (12.1-15.1) % Plt Count 202 (130-400) 10^3/c mm MPV 10.0 (7.4-10.4) fL Neut % (Auto) 59.7 % Lymph % (Auto) 25.3 % Alger % (Auto) 13.0 % Eos % (Auto) 1.4 % Baso % (Auto) 0.4 % Neut # (Auto) 3.31 (1.8-7.7) 10^3/u L Lymph # (Auto) 1.4 (0.8-4.8) 10^3/u L Alger # (Auto) 0.7 (0.2-0.9) 10^3/u L Eos # (Auto) 0.1 (0.0-0.8) 10^3/u L Baso # (Auto) 0.0 (0.0-0.1) 10^3/u L Nucleated RBC % (a uto) 0 % Nucleated RBCs # 0.0 /100WBC Specimen Type Arterial Sample Site Radial, right ABG pH 7.47 H (7.35-7.45) ABG pCO2 40.1 (35-45) mmHg ABG pO2 85.0 (80.0-100.0) mmH g ABG HCO3 29.2 H (22-26) mmol/L ABG O2 Saturation 97.9 ABG Base Excess 5.2 H (-2.0-2.0) mmol/ L Phillip Test Pos A-a O2 Gradient 2.1 L (5-10) mmHg Hematocrit 44.9 (37-47) % Hgb O2 Saturation 96.4 (95-100) % Carboxyhemoglobin 0.9 (0.4-20.1) %THgb Methemoglobin 0.7 (0.4-1.5) % Total Hemoglobin 14.7 (12-16) g/dL Sodium 133.0 (131-143) mmol/L Potassium 3.9 (3.5-5.0) mmol/L Glucose 186.0 H (70-115) mg/dL Ionized Calcium 1.2 (1.1-1.4) mmol/L O2 Delivery Device Room air FiO2 21.0 % [employer] Member ID Gd Chloride (98-107) mmol/L Carbon Dioxide (22-29) mmol/L Anion Gap (5-19) BUN (8-23) mg/dL Creatinine (0.5-0.9) mg/dL GFR Calculation (90-130) mL/min Calculated Osmolal ity (285-295) mOsm/k g Lactic Acid 1.5 (0.5-2.2) mmol/L Calcium (8.5-10.5) mg/dL Total Bilirubin (0.15-1.2) mg/dL AST (0-32) U/L ALT (0-33) U/L Alkaline Phosphata se (35-105) IU/L Creatine Kinase (26-192) U/L Troponin T Baselin e (0-10) ng/L Troponin T 120 Min augustine (0-10) ng/L Delta Troponin T (0-10) ABS# Total Protein (6.6-8.7) g/dL Albumin (3.5-5.2) g/dL Globulin (1.3-4.6) g/dL Lipase (13-60) U/L Urine Color (Yellow) Urine Appearance (CLEAR) Urine pH (5-7) Ur Specific Gravit y (1.005-1.030) Urine Protein (Negative) Urine Glucose (UA) (Normal) Urine Ketones (Negative) Urine Blood (Negative) Urine Nitrate (Negative) Urine Bilirubin (Negative) Urine Urobilinogen (Negative) mg/dL Ur Leukocyte Yojana ase (Negative) Urine RBC (0-2) /hpf Urine WBC (0-5) /hpf Ur Squamous Epith Cells (0-5) /hpf Amorphous Sediment Urine Bacteria (NONE) /hpf 09/27/20 09/27/20 09/27/20 Range/Units 16:55 16:55 17:23 WBC (4.0-10.0) 10^3/ uL RBC (4.1-5.3) 10^6/u L Hgb (11.5-15.3) g/dL Hct (37.0-47.0) % MCV (81-99) fL MCH (28.0-34.0) pg MCHC (30.0-36.0) g/dL RDW (12.1-15.1) % Plt Count (130-400) 10^3/c mm MPV (7.4-10.4) fL Neut % (Auto) % Lymph % (Auto) % Alger % (Auto) % Eos % (Auto) % Baso % (Auto) % Neut # (Auto) (1.8-7.7) 10^3/u L Lymph # (Auto) (0.8-4.8) 10^3/u L Alger # (Auto) (0.2-0.9) 10^3/u L Eos # (Auto) (0.0-0.8) 10^3/u L Baso # (Auto) (0.0-0.1) 10^3/u L Nucleated RBC % (a uto) % Nucleated RBCs # /100WBC Specimen Type Sample Site ABG pH (7.35-7.45) ABG pCO2 (35-45) mmHg ABG pO2 (80.0-100.0) mmH g ABG HCO3 (22-26) mmol/L ABG O2 Saturation ABG Base Excess (-2.0-2.0) mmol/ L Phillip Test A-a O2 Gradient (5-10) mmHg Hematocrit (37-47) % Hgb O2 Saturation (95-100) % Carboxyhemoglobin (0.4-20.1) %THgb Methemoglobin (0.4-1.5) % Total Hemoglobin (12-16) g/dL Sodium 132 L (131-143) mmol/L Potassium 4.2 (3.5-5.0) mmol/L Glucose 169 H (70-115) mg/dL Ionized Calcium (1.1-1.4) mmol/L O2 Delivery Device FiO2 % [employer] Member ID Chloride 95 L (98-107) mmol/L Carbon Dioxide 24 (22-29) mmol/L Anion Gap 17.2 (5-19) BUN 9 (8-23) mg/dL Creatinine 0.3 L (0.5-0.9) mg/dL GFR Calculation 219.9 H (90-130) mL/min Calculated Osmolal ity 277 L (285-295) mOsm/k g Lactic Acid (0.5-2.2) mmol/L Calcium 8.8 (8.5-10.5) mg/dL Total Bilirubin 0.4 (0.15-1.2) mg/dL AST 33 H (0-32) U/L ALT 18 (0-33) U/L Alkaline Phosphata se 64 (35-105) IU/L Creatine Kinase 144 (26-192) U/L Troponin T Baselin e 19 H (0-10) ng/L Troponin T 120 Min augustine (0-10) ng/L Delta Troponin T (0-10) ABS# Total Protein 7.6 (6.6-8.7) g/dL Albumin 3.8 (3.5-5.2) g/dL Globulin 3.8 (1.3-4.6) g/dL Lipase 24 (13-60) U/L Urine Color Yellow (Yellow) Urine Appearance Clear (CLEAR) Urine pH 6 (5-7) Ur Specific Gravit y 1.015 (1.005-1.030) Urine Protein Neg (Negative) Urine Glucose (UA) Norm (Normal) Urine Ketones Negative (Negative) Urine Blood 2+ H (Negative) Urine Nitrate Negative (Negative) Urine Bilirubin Neg (Negative) Urine Urobilinogen Norm (Negative) mg/dL Ur Leukocyte Yojana ase Trace H (Negative) Urine RBC 0-4 H (0-2) /hpf Urine WBC 0-4 H (0-5) /hpf Ur Squamous Epith Cells 0-4 H (0-5) /hpf Amorphous Sediment Not Reportable Urine Bacteria Trace (NONE) /hpf 09/27/20 Range/Units 19:00 WBC (4.0-10.0) 10^3/ uL RBC (4.1-5.3) 10^6/u L Hgb (11.5-15.3) g/dL Hct (37.0-47.0) % MCV (81-99) fL MCH (28.0-34.0) pg MCHC (30.0-36.0) g/dL RDW (12.1-15.1) % Plt Count (130-400) 10^3/c mm MPV (7.4-10.4) fL Neut % (Auto) % Lymph % (Auto) % Alger % (Auto) % Eos % (Auto) % Baso % (Auto) % Neut # (Auto) (1.8-7.7) 10^3/u L Lymph # (Auto) (0.8-4.8) 10^3/u L Alger # (Auto) (0.2-0.9) 10^3/u L Eos # (Auto) (0.0-0.8) 10^3/u L Baso # (Auto) (0.0-0.1) 10^3/u L Nucleated RBC % (a uto) % Nucleated RBCs # /100WBC Specimen Type Sample Site ABG pH (7.35-7.45) ABG pCO2 (35-45) mmHg ABG pO2 (80.0-100.0) mmH g ABG HCO3 (22-26) mmol/L ABG O2 Saturation ABG Base Excess (-2.0-2.0) mmol/ L Phillip Test A-a O2 Gradient (5-10) mmHg Hematocrit (37-47) % Hgb O2 Saturation (95-100) % Carboxyhemoglobin (0.4-20.1) %THgb Methemoglobin (0.4-1.5) % Total Hemoglobin (12-16) g/dL Sodium (131-143) mmol/L Potassium (3.5-5.0) mmol/L Glucose (70-115) mg/dL Ionized Calcium (1.1-1.4) mmol/L O2 Delivery Device FiO2 % [employer] Member ID Chloride (98-107) mmol/L Carbon Dioxide (22-29) mmol/L Anion Gap (5-19) BUN (8-23) mg/dL Creatinine (0.5-0.9) mg/dL GFR Calculation (90-130) mL/min Calculated Osmolal ity (285-295) mOsm/k g Lactic Acid (0.5-2.2) mmol/L Calcium (8.5-10.5) mg/dL Total Bilirubin (0.15-1.2) mg/dL AST (0-32) U/L ALT (0-33) U/L Alkaline Phosphata se (35-105) IU/L Creatine Kinase (26-192) U/L Troponin T Baselin e (0-10) ng/L Troponin T 120 Min augustine 17.52 H (0-10) ng/L Delta Troponin T -1.48 L (0-10) ABS# Total Protein (6.6-8.7) g/dL Albumin (3.5-5.2) g/dL Globulin (1.3-4.6) g/dL Lipase (13-60) U/L Urine Color (Yellow) Urine Appearance (CLEAR) Urine pH (5-7) Ur Specific Gravit y (1.005-1.030) Urine Protein (Negative) Urine Glucose (UA) (Normal) Urine Ketones (Negative) Urine Blood (Negative) Urine Nitrate (Negative) Urine Bilirubin (Negative) Urine Urobilinogen (Negative) mg/dL Ur Leukocyte Yojana ase (Negative) Urine RBC (0-2) /hpf Urine WBC (0-5) /hpf Ur Squamous Epith Cells (0-5) /hpf Amorphous Sediment Urine Bacteria (NONE) /hpf Imaging Data^: CT Head: Radiologist's impression: [address] [address] [address] Scan Report Signed Patient: Hiwot Cash Unit #: [id number] : [id number] Age/Sex: 70 / F ADM Date: 09/27/20 Loc: ER Room/Bed: Attending Dr: Ordering Provider/Ordering MD: Buddy Boyce MD Date of Service: 09/27/20 Procedure(s): CT head wo con* [id number] Accession Number(s): [id number] Report Number: [id number] PROCEDURE INFORMATION: Exam: CT Head Without Contrast Exam date and time: 09/27/2020 7:03 PM Age: 70 years old Clinical indication: Altered mental status/memory loss; Amnesia, not specified; Patient HX: Acute memory loss/ams TECHNIQUE: Imaging protocol: Computed tomography of the head without contrast. Radiation optimization: All CT scans at this facility use at least one of these dose optimization techniques: automated exposure control; mA and/or kV adjustment per patient size (includes targeted exams where dose is matched to clinical indication); or iterative reconstruction. COMPARISON: No relevant prior studies available. RADIATION DOSE METRICS: Total DLP (mGy-cm): 804.85 FINDINGS: Brain: There is volume loss and periventricular low density compatible with chronic small vessel disease changes. There is no acute hemorrhage, edema or mass effect. 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 There are small bifrontal benign hygromas. Cerebral ventricles: No ventriculomegaly. Bones/joints: Unremarkable. No acute fracture. Paranasal sinuses: There is mucosal thickening in the sinuses. Mastoid air cells: There is nonspecific fluid within the mastoid sinuses. Soft tissues: Unremarkable. CT/CT head wo con* [id number] IMPRESSION: No acute intracranial abnormality. Discharge Plan Discharge Patient Disposition: Home Clinical Impression: Altered mental status Condition: Stable Prescriptions: No Action ferrous sulfate 325 mg (65 mg iron) tablet 325 mg PO DAILY@0600 RF: 0 calcium carbonate 600 mg calcium (1,500 mg) tablet 600 mg PO BID@0600,1800 RF: 0 omega-3 fatty acids 1,250 mg capsule 2,500 mg PO DAILY@0600 RF: 0 multivitamin Tablet 1 tab PO DAILY RF: 0 Zyrtec 10 mg capsule 10 mg PO DAILY@0600 RF: 0 ergocalciferol (vitamin D2) 1,250 mcg (50,000 unit) capsule 1,250 mcg PO Q7D RF: 0 Calcium 300 300 mg (750 mg) Tablet,Chewable 300 tab PO DAILY@0600 RF: 0 levothyroxine 25 mcg Tablet 25 mcg PO DAILY@0500 RF: 0 fluocinonide 0.05 % Cream 1 applic TOPICAL BID RF: 0 Geritol See Rx Instructions .ROUTE .COMPLEX RF: 0 olive oil 1 tsp PO DAILY@0600 RF: 0 Enbrel 50 mg/mL (1 mL) syringe 50 mg SUBCUT Q10D RF: 0 Discharge Orders: Discharge ED (Routine); Ordered 09/27/20 Ordered By: Buddy Boyce Referrals: Donna Bose MD [Primary Care Provider] - 1-3 days Discharge Diet: Advance as tolerated Discharge Activity: Resume usual activity Patient Instructions: Altered Mental Status (ED) Coding Level of Care Code ED [employer] for Chg Fwd Exam Problem Focused
[2020-09-27 16:51] LABS: ABG PCO2 40.1 mmHg (35-45); ABG PH Result 7.47 (7.35-7.45); Alveolar-Arterial Oxygen Gradi 2.1 mmHg (5-10); Arterial Blood Gas Hematocrit 44.9 % (37-47); Base Excess ABG 5.2 mmol/L (-2.0-2.0); Blood Gas Allen Test Pos; Blood Gas Operator Identificat GD; Blood Gas Sample Site Radial, right; Blood Gas Sample Type Arterial; Carboxyhemoglobin 0.9 %THgb (0.4-20.1); HCO3 ABG 29.2 mmol/L (22-26); HGB O2 Sat 96.4 % (95-100); Ionized Calcium Level - ABG 1.2 mmol/L (1.1-1.4); Methemoglobin 0.7 % (0.4-1.5); Oxygen Device ROOM AIR; Oxygen Saturation ABG 97.9; Potassium Level - ABG 3.9 mmol/L (3.5-5.0); Total Hemoglobin 14.7 g/dL (12-16)
[2020-09-27 17:06] LABS: Basophils % 0.4 %; Eosinophils # 0.1 10^3/uL (0.0-0.8); Eosinophils % 1.4 %; Hematocrit 39.9 % (37.0-47.0); Hemoglobin 12.9 g/dL (11.5-15.3); Lymphocytes # 1.4 10^3/uL (0.8-4.8); Lymphocytes % 25.3 %; Mean Corpuscular HGB Conc 32.3 g/dL (30.0-36.0); Mean Corpuscular Hemoglobin 28.8 pg (28.0-34.0); Mean Corpuscular Volume 89.1 fL (81-99); Monocytes # 0.7 10^3/uL (0.2-0.9); Neutrophils # 3.31 10^3/uL (1.8-7.7); Neutrophils % 59.7 %; Nucleated Red Blood Cells % 0 %; Platelet Count 202 10^3/cmm (130-400); Red Blood Count 4.48 10^6/uL (4.1-5.3); Red Cell Distribution Width 13.2 % (12.1-15.1); White Blood Count 5.5 10^3/uL (4.0-10.0)
[2020-09-27 17:26] LABS: Troponin(5th) Baseline 19 ng/L (0-10)
[2020-09-27 17:29] LABS: Lactic Sepsis W/Reflex 1.5 mmol/L (0.5-2.2)
[2020-09-27 17:30] LABS: Alanine Aminotransferase 18 U/L (0-33); Albumin Level 3.8 g/dL (3.5-5.2); Alkaline Phosphatase 64 IU/L (35-105); Blood Urea Nitrogen 9 mg/dL (8-23); Calcium 8.8 mg/dL (8.5-10.5); Carbon Dioxide 24 mmol/L (22-29); Chloride 95 mmol/L (98-107); Creatine Phosphokinase 144 U/L (26-192); Globulin 3.8 g/dL (1.3-4.6); Glomerular Filtration Rate 219.9 mL/min (90-130); Glucose 169 mg/dL (65-115); Lipase 24 U/L (13-60); Osmolality Calculated 277 mOsm/kg (285-295); Sodium 132 mmol/L (136-145); Total Bilirubin 0.4 mg/dL (0.15-1.2); Total Protein 7.6 g/dL (6.6-8.7)
[2020-09-27 17:34] LABS: Anion Gap 17.2 (5-19); Aspartate Amino Transferase 33 U/L (0-32); Potassium 4.2 mmol/L (3.5-5.1)
[2020-09-27 17:43] LABS: Add Urine Microscopic? YES; Bacteria Urine TRACE /hpf; Bilirubin Urine Neg (Negative); Blood Urine 2+ (Negative); Glucose Urine UA Norm (Normal); Ketones Urine Negative (Negative); Leukocyte Esterase Urine Trace (Negative); Nitrate Urine Negative (Negative); Protein Urine Neg (Negative); RBC Urine 0-4 /hpf (0-2); Specific Gravity, Urine 1.015 (1.005-1.030); Squamous Epithelial Cell Urine 0-4 /hpf (0-5); Urine Appearance Clear (CLEAR); Urine Color Yellow (Yellow); Urobilinogen Urine Norm (Negative); WBC Urine 0-4 /hpf (0-5); pH Urine 6 (5-7)
--- NOTE | 2020-09-27 18:58 | CTR_ITS ---
PROCEDURE INFORMATION: Exam: CT Head Without Contrast Exam date and time: 09/27/2020 7:03 PM Age: 70 years old Clinical indication: Altered mental status/memory loss; Amnesia, not specified; Patient HX: Acute memory loss/ams TECHNIQUE: Imaging protocol: Computed tomography of the head without contrast. Radiation optimization: All CT scans at this facility use at least one of these dose optimization techniques: automated exposure control; mA and/or kV adjustment per patient size (includes targeted exams where dose is matched to clinical indication); or iterative reconstruction. COMPARISON: No relevant prior studies available. RADIATION DOSE METRICS: Total DLP (mGy-cm): 804.85 FINDINGS: Brain: There is volume loss and periventricular low density compatible with chronic small vessel disease changes. There is no acute hemorrhage, edema or mass effect. 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 There are small bifrontal benign hygromas. Cerebral ventricles: No ventriculomegaly. Bones/joints: Unremarkable. No acute fracture. Paranasal sinuses: There is mucosal thickening in the sinuses. Mastoid air cells: There is nonspecific fluid within the mastoid sinuses. Soft tissues: Unremarkable. CT/CT head wo con* [id number] IMPRESSION: No acute intracranial abnormality. Radiation Dose CTDIVOL = (mGy): DLP = 804.85 (mGy-cm)
[2020-09-27 19:36] LABS: Troponin 5 2HR 17.52 ng/L (0-10)
[2020-09-27 19:38] LABS: Troponin 5 2HR Delta -1.48 ABS# (0-10)
[2020-09-27 19:58] VITALS: BP 135/84; PULSE 85; RESP 16; O2SAT 98
--- NOTE | 2020-10-02 13:20 | DCPLANNER ---
Addendum entered by Melvi Preston 10/24/20 12:21: Patient has a follow up appointment scheduled for Sunday, November 26 at 1:30 for a carotid duplex. Patient has a follow up appointment scheduled for Thursday, November 26, 2020 at 12:45 for an echo. Patient had a MRI scheduled for 10.14.20 - patient did attend appointment Patient had a 24 hour halter monitor scheduled for 10.17.20 at [facility] care - patient did attend appointment. Original Note: automotive sales manager had message to schedule some outpatient tests for patient. automotive sales manager faxed signed order to centralized scheduling and [facility] for an echo, carotid, MRI brain w/wo contrast and a 24 hour holter. automotive sales manager will call for appointment information.
--- NOTE | 2020-10-17 08:15 | DCPLANNER ---
Patient has a follow up appointment at [facility] for a 24 hour holter monitor for , October 17, 2020 at 1:30. Clinic will contact patient with appointment information.
--- NOTE | 2020-12-03 11:57 | DCPLANNER ---
Patient had a follow up appointment scheduled for 11.26.20 for an outpatient carotid and an echo - patient attended both appointments.
== END 2020-09-27 19:59 | disposition home or self-care (01) ==
PROVIDERS: Family Medicine; Emergency Provider Emergency Medicine; PCP Family Medicine
DX: R41.82 Altered mental status, unspecified (principal)
CPT/HCPCS: 36415; 36600; 70450; 71045; 80051; 80053; 81001; 82330; 82550; 82805; 83605; 83690; 84484; 85025; 93005; 99284

== ENCOUNTER 2020-10-14 08:26 | Outpatient (CLI) | payer OTHER, SELFPAY ==
--- NOTE | 2020-10-14 08:54 | MR_ITS ---
WS: [id number] MRA HEAD TECHNIQUE: Axial 3-D TOF images obtained with axial images and axial, sagittal, and coronal 2-D refor matted images. CLINICAL INFORMATION: MS CHANGE/ AMS COMPARISON: CT September 27, 2020 FINDINGS: Distal vertebral arteries are patent. Basilar artery is patent. Normal vascularity to the [employer] territo ry bilaterally. Patent posterior communicating arteries bilaterally. ICAs are patent at the skull base. Normal vascularity to the JUAN and MCA territories bilaterally. No evidence of high-grade proximal stenosis or aneurysm. Partial opacification of the mastoid air cells. MR/MR angio head wo con [id number] IMPRESSION: Unremarkable intracranial MRA.
--- NOTE | 2020-10-14 08:55 | MR_ITS ---
WS: [id number] MRI HEAD WITHOUT CONTRAST TECHNIQUE: Sagittal T1, T2 axial, T2 axial FLAIR, axial and coronal T1 images, axial susceptibility w eighted imaging, axial diffusion weighted images, and coronal T2 images were obtained. CLINICAL INFORMATION: MENTAL STATUS CHANGE/AMS COMPARISON: MRA earlier today FINDINGS: Numerous tiny foci of restricted diffusion consistent with tiny acute infarcts involving the left fro ntal and left parietal lobes. Additional tiny focus of restricted diffusion the right frontoparietal junction. Findings are suspicious for tiny embolic infarcts. No evidence of hemorrhage. No significan t edema. No mass effect or midline shift. Mild small vessel changes. Moderate parenchymal volume loss. Tiny chronic lacunar infarct in the left cerebellum. Normal vascular flow voids at the skull base. No extra-axial fluid collections. Partial opacification of the mastoid air cells bilaterally. Small amount of fluid and mucosal thickening cons istent with sinusitis in the maxillary sinuses. Mild mucosal thickening in the ethmoid air cells. 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 No hemosiderin on the susceptibility weighted images. Mild symmetric atrophy temporal lobes and hippocampal formations. Normal optic chiasm and pituitary i nfundibulum. MR/MR head wo con* [id number] IMPRESSION: 1. Several tiny foci of restricted diffusion involving the left frontal and pa rietal lobes with a single focus at the right frontoparietal junction consisten t with tiny foci of acute ischemia. Findings are suspicious for embolic etiolog y. 2. No hemosiderin on susceptibly weighted images. No significant edema. 3. No mass effect or midline shift. 4. Mild small vessel changes with moderate parenchymal volume loss. 5. Partial opacification the mastoid air cells with paranasal sinusitis.
== END 2020-10-14 08:27 | disposition home or self-care (01) ==
PROVIDERS: PCP Family Medicine; Visit Provider Family Medicine
DX: R41.82 Altered mental status, unspecified (principal)
CPT/HCPCS: 70544; 70551

== ENCOUNTER 2020-10-17 14:35 | Outpatient (CLI) | payer OTHER, SELFPAY ==
--- NOTE | 2020-10-17 14:40 | MM_ITS ---
WS: [id number] BILATERAL SCREENING DIGITAL MAMMOGRAM WITH CAD HISTORY: SCREENING COMPARISON: 11/05/2016 and 04/25/2013 Bilateral CC and MLO views submitted. Computer aided detection analyzed. Breast composition: There are scattered areas of fibroglandular density. No suspicious masses, microc alcifications or architectural distortion. Very dense vascular calcifications in each breast. Calcifi cations in the RIGHT axilla resolve after removal of deodorant on a subsequent radiograph performed o n 10/21/2020. MM/[place] [id number] IMPRESSION: BI-RADS: 2-Benign FOLLOW UP: 1 Year Follow-up
== END 2020-10-17 14:36 | disposition home or self-care (01) ==
LOC: RADSHAW 14:38
PROVIDERS: PCP Family Medicine; Visit Provider Family Medicine
DX: Z12.31 Encounter for screening mammogram for malignant neoplasm of breast (principal)
CPT/HCPCS: 77067

== ENCOUNTER → 2020-10-22 13:24 | Outpatient (BNVA) | payer OTHER, SELFPAY | PROVIDERS: PCP Family Medicine; Visit Provider Internal Medicine Rheumatology | DX: M05.79 Rheumatoid arthritis with rheumatoid factor of multiple sites without organ or systems involvement (principal); Z79.899 Other long term (current) drug therapy; M81.0 Age-related osteoporosis without current pathological fracture; M19.012 Primary osteoarthritis, left shoulder; C02.9 Malignant neoplasm of tongue, unspecified; Z96.643 Presence of artificial hip joint, bilateral; Z96.653 Presence of artificial knee joint, bilateral | CPT/HCPCS: 99214 ==

== ENCOUNTER 2020-11-26 12:00 | Outpatient (CLI) | payer OTHER, SELFPAY ==
--- NOTE | 2020-11-26 12:08 | USCV_ITS ---
Hiwot Cash Age: 70 Gender: F : 1950 Exam Date: 11/26/2020 12:49 Ordering Phys: Donna Bose MD Technologist: Angella Slade Exam Location: [facility] – [place] Indication: CEREBRAL INFARCT BP: 120 / 60 HR: 70 Rhythm: Atrial fibrillation Technical Quality: Adequate MEASUREMENTS (Male / Female) Normal Values 2D ECHO LV Diastolic Diameter PLAX 3.6 cm 4.2 - 5.9 / 3.9 - 5.3 cm LV Systolic Diameter PLAX 2.7 cm IVS Diastolic Thickness 1.1 cm 0.6 - 1.0 / 0.6 - 0.9 cm IVS Systolic Thickness 1.4 cm LVPW Diastolic Thickness 1.1 cm 0.6 - 1.0 / 0.6 - 0.9 cm LVPW Systolic Thickness 1.6 cm LVOT Diameter 2.0 cm LV Ejection Fraction 2D Teich 49.9 % LV Ejection Fraction MOD 2C 59.4 % LV Ejection Fraction 2C AL 58.9 % LA Diameter 3.4 cm LA Width 2.8 cm LA Height 4.0 cm RA Width 3.6 cm RA Height 3.9 cm Aorta at Sinotubular Diameter 2.4 cm M-MODE Aortic Annulus Diameter 2.5 cm LA Ao Ratio MM 1.4 DOPPLER AV Peak Velocity 124.0 cm/s LVOT Peak Velocity 123.0 cm/s AV Area Cont Eq vti 3.2 cm squared AV Area Cont Eq pk 3.1 cm squared MV Area PHT 6.3 cm squared MV E' Velocity 46.0 cm/s Mitral E to MV E' Ratio 8.5 Mitral E to LV E' Lateral Ratio 7.2 Mitral E to LV E' Septal Ratio 10.5 TR Peak Velocity 283.1 cm/s TR Peak Gradient 32.1 mmHg TR Mean Velocity 219.8 cm/s TR Mean Gradient 19.5 mmHg TR Velocity Time Integral 68.7 cm Right Atrial Pressure 3.0 mmHg Pulmonary Artery Systolic Pressu 35.1 mmHg PV Peak Velocity 72.0 cm/s RV Acceleration Time 0.1 s RV Ejection Time 0.3 s RV AcT/ET 0.3 FINDINGS Left Ventricle Normal left ventricular cavity size. Normal left ventricular systolic function. Left ventricular ejection fraction is estimated at 50 %. Grade I/IV diastolic dysfunction (abnormal relaxation filling pattern), normal to mildly elevated filling pressures. Right Ventricle The right ventricle is normal in size and function. Right Atrium The right atrium is normal in size. Left Atrium The left atrium is normal in size. Mitral Valve Moderately thickened mitral valve. Moderate mitral annular calcification. No mitral valve stenosis. Mild mitral valve regurgitation. Aortic Valve Moderate aortic valve calcification. No aortic valve stenosis. Trace aortic valve regurgitation. Tricuspid Valve Structurally normal tricuspid valve without significant stenosis or regurgitation. Pulmonary artery systolic pressure is normal. Pulmonic Valve Structurally normal pulmonic valve without significant stenosis. There is no pulmonic regurgitation. Pericardium Normal pericardium without effusion. Aorta Normal ascending aorta dimension. CONCLUSIONS 1-Normal left ventricular cavity size. Normal left ventricular systolic function. Left ventricular ejection fraction is estimated at 50 %. Grade I/IV diastolic dysfunction (abnormal relaxation filling pattern), normal to mildly elevated filling pressures. 2-Moderately thickened mitral valve. Moderate mitral annular calcification. No mitral valve stenosis. Mild mitral valve regurgitation. 3-Moderate aortic valve calcification. No aortic valve stenosis. Trace aortic valve regurgitation. 4-There is no pericardial effusion. 5-Pulmonary artery systolic pressure is within normal limits. 6-Right atrial pressure is around 5 mm of mercury. 7-There are no prior echocardiogram studies to compare. Pancho Sahu MD (Electronically Signed) Final Date: 27 November 2020 18:48 S
--- NOTE | 2020-11-26 12:09 | USCV_ITS ---
ShaileshHiwot hoang Age: 70 Gender: F : 1950 Exam Date: 11/26/2020 12:28 Ordering Phys: Donna Bose MD Technologist: Angella Slade Exam Location: [facility] – [place] Indication: cerebral infarct Risk Factors: Previous Vascular Surgery: Right Brachial BP: / Left Brachial BP: / Right Left Velocity (cm/s) Spectral Plaque Velocity (cm/s) Spectral Plaque Syst/Diast Broadening Syst/Diast Broadening 82.80/ 15.90 Prox CCA 112.50/ 15.40 92.30/ 20.20 Mid CCA 96.60 / 18.70 70.50/ 16.00 Distal CCA 68.10 / 12.50 132.60/44.20 Prox ICA 328.10/ 85.40 122.70/38.80 Mid ICA 106.10/ 23.40 102.50/26.50 Distal ICA 60.60 / 26.50 125.50 ECA 71.80 1.44 ICA/CCA 2.92 Antegrade Vertebral Antegrade 88.20/ 17.60 cm/s 72.50/ 17.90 cm/s Tri Subclavian Tri 124.6 109.4 0 0 FINDINGS Comparison: none available. Diffuse bilateral scattered calcified plaque and intimal thickening throughout the common carotid arteries and extending through the bifurcation. Greater plaque on the left. Moderate elevation of left ICA velocity and ratio. Mild stenosis on the right. Antegrade vertebral arteries. CONCLUSIONS Left ICA stenosis 50-69%. Close to 69%. Recommend correlation with CTA. Right ICA stenosis < 50%. Dr. Masha Medina DO (Electronically Signed) Final Date: 26 November 2020 14:00 S
== END 2020-11-26 12:01 | disposition home or self-care (01) ==
PROVIDERS: PCP Family Medicine; Visit Provider Family Medicine
DX: I63.9 Cerebral infarction, unspecified (principal); I48.91 Unspecified atrial fibrillation; I08.0 Rheumatic disorders of both mitral and aortic valves
CPT/HCPCS: 93306; 93880

== ENCOUNTER 2020-12-06 09:07 | Outpatient (CLI) | payer OTHER, SELFPAY ==
--- NOTE | 2020-12-06 | CT_ITS ---
WS: [id number] Exam: CT angio neck [id number] Date/Time of Exam: 12/06/2020 9:30 AM Reason For Exam: OCCLUSION AND STENOSIS DLP: 823.[address] scans at [facility] use at least one of these dose optimization techniques: automat ed exposure control; mA and/or kV adjustment per patient size (includes targeted exams where dose is matched to clinical indication); or iterative reconstruction. CT angiography of the neck is performed in the axial plane with sagittal and coronal reformatted imag es. Intravenous contrast was administered. The right and left common carotid arteries are markedly tortuous but grossly patent. There is stenosi s at the proximal left ICA visually estimated at about 70%. Stenosis secondary to heavily calcified p laquing at the bifurcation and proximal left ICA. There is there is stenosis of the proximal right IC A visually estimated at 40-50%. Stenosis also secondary to calcified atherosclerotic plaquing within the proximal right ICA and right bifurcation. The proximal subclavian arteries are bilaterally patent . The vertebral arteries are bilaterally patent. The cavernous internal carotid arteries show moderat e plaquing but are grossly patent. No aneurysm or dissection was demonstrated. Emphysematous changes seen in the visualized upper lung zones. Apical pulmonary parenchymal scarring and pleural scarring. No obvious neck mass or cervical lymphadenopathy. The airway is patent. Normal thyroid tissue. Degenerative changes in the cervical spine. Mucosal thickening in the frontal ethmoid and maxillary sinuses. The left maxillary sinus is almost completely mucus filled. Signs of bilatera l maxillary sinus antrectomies. CT/CT angio neck [id number] IMPRESSION: 1. Stenosis at the takeoff and proximal left ICA visually estimated at about 70 %. Stenosis secondary to heavy calcified atherosclerotic plaquing. 2. Stenosis of the proximal right ICA visually estimated at 40-50% secondary to calcified plaquing. 3. The bilateral common carotid arteries are markedly tortuous but patent witho ut critical stenosis or occlusion. 4. The bilateral vertebral arteries are patent. 5. No sign of the dissection or aneurysm. 6. Paranasal sinus disease as noted above.
[2020-12-06] MEDS: iohexol 350 mg/mL 100 mL Btl IV (10:14)
[2020-12-06 10:36] LABS: Blood Urea Nitrogen 8 mg/dL (8-23)
== END 2020-12-06 09:08 | disposition home or self-care (01) ==
PROVIDERS: PCP Family Medicine; Visit Provider Family Medicine
DX: I65.22 Occlusion and stenosis of left carotid artery (principal); Z86.73 Personal history of transient ischemic attack (TIA), and cerebral infarction without residual deficits
CPT/HCPCS: 70498; 82565; 84520; 99204; Q9967

== ENCOUNTER → 2021-02-19 14:08 | Outpatient (BNVA) | payer OTHER, SELFPAY | PROVIDERS: PCP Family Medicine; Visit Provider Internal Medicine Rheumatology | DX: M05.79 Rheumatoid arthritis with rheumatoid factor of multiple sites without organ or systems involvement (principal); M81.0 Age-related osteoporosis without current pathological fracture; M15.3 Secondary multiple arthritis; Z79.899 Other long term (current) drug therapy; C02.9 Malignant neoplasm of tongue, unspecified; Z96.653 Presence of artificial knee joint, bilateral; Z96.643 Presence of artificial hip joint, bilateral; Z71.89 Other specified counseling | CPT/HCPCS: 99214 ==

== ENCOUNTER 2021-03-27 12:41 | Outpatient (CLI) | payer OTHER, SELFPAY ==
[2021-03-27 13:10] VITALS: BP 131/73; PULSE 88; RESP 18; TEMP 37; O2SAT 98
[2021-03-27] MEDS: acetaminophen 325 mg Tablet 650 MG PO (13:40)
[2021-03-27 14:39] VITALS: BP 133/72; PULSE 86; RESP 18; TEMP 37; O2SAT 99
== END 2021-03-27 12:42 | disposition home or self-care (01) ==
LOC: ONCMED 12:45
PROVIDERS: PCP Family Medicine; Visit Provider Internal Medicine Rheumatology
DX: M81.0 Age-related osteoporosis without current pathological fracture (principal)
CPT/HCPCS: 96365; J3489

== ENCOUNTER → 2021-08-18 13:30 | Outpatient (BNVA) | payer OTHER, SELFPAY | PROVIDERS: PCP Family Medicine; Visit Provider Internal Medicine Rheumatology | DX: Z79.899 Other long term (current) drug therapy (principal); M05.79 Rheumatoid arthritis with rheumatoid factor of multiple sites without organ or systems involvement; M81.0 Age-related osteoporosis without current pathological fracture; M15.3 Secondary multiple arthritis | CPT/HCPCS: 80076; 82565; 85025; 86140 ==

== ENCOUNTER 2021-11-21 15:07 | Outpatient (CLI) | payer OTHER, SELFPAY ==
[2021-11-21 15:48] LABS: Basophils % 0.7 %; Eosinophils # 0.1 10^3/uL (0.0-0.8); Hematocrit 40.9 % (37.0-47.0); Hemoglobin 12.9 g/dL (11.5-15.3); Lymphocytes # 1.2 10^3/uL (0.8-4.8); Lymphocytes % 26.3 %; Mean Corpuscular HGB Conc 31.5 g/dL (30.0-36.0); Mean Corpuscular Hemoglobin 28.4 pg (28.0-34.0); Mean Corpuscular Volume 89.9 fl (81-99); Mean Platelet Volume 10.1 fL (7.4-10.4); Monocytes # 0.6 10^3/uL (0.2-0.9); Monocytes % 12.1 %; Neutrophils # 2.66 10^3/uL (1.8-7.7); Neutrophils % 58.7 %; Nucleated Red Blood Cells % 0 %; Platelet Count 202 10^3/cmm (130-400); Red Blood Count 4.55 10^6/uL (4.1-5.3); Red Cell Distribution Width 13.9 % (12.1-15.1); White Blood Count 4.5 10^3/uL (4.0-10.0)
[2021-11-21 16:01] LABS: Alanine Aminotransferase 21 U/L (0-33); Albumin Level 3.9 g/dL (3.5-5.2); Alkaline Phosphatase 61 IU/L (35-105); Aspartate Amino Transferase 32 U/L (0-32); Globulin 3.5 g/dL (1.3-4.6); Total Bilirubin 0.3 mg/dL (0.15-1.2); Total Protein 7.4 g/dL (6.6-8.7)
== END 2021-11-21 15:08 | disposition home or self-care (01) ==
LOC: LAB 15:10
PROVIDERS: PCP Family Medicine; Visit Provider Internal Medicine Rheumatology
DX: E87.1 Hypo-osmolality and hyponatremia (principal); E03.9 Hypothyroidism, unspecified; Z79.899 Other long term (current) drug therapy; M05.79 Rheumatoid arthritis with rheumatoid factor of multiple sites without organ or systems involvement
CPT/HCPCS: 36415; 80076; 82565; 85025; 86140

== ENCOUNTER 2022-04-20 15:10 | Outpatient (CLI) | payer OTHER, SELFPAY ==
[2022-04-20 16:18] LABS: Basophils % 0.7 %; Eosinophils # 0.1 10^3/uL (0.0-0.8); Eosinophils % 2.7 %; Hematocrit 41.4 % (37.0-47.0); Hemoglobin 13.2 g/dL (11.5-15.3); Lymphocytes # 1.2 10^3/uL (0.8-4.8); Lymphocytes % 27.1 %; Mean Corpuscular HGB Conc 31.9 g/dL (30.0-36.0); Mean Corpuscular Hemoglobin 28.8 pg (28.0-34.0); Mean Corpuscular Volume 90.2 fl (81-99); Mean Platelet Volume 10.3 fL (7.4-10.4); Monocytes # 0.6 10^3/uL (0.2-0.9); Monocytes % 12.9 %; Neutrophils # 2.55 10^3/uL (1.8-7.7); Neutrophils % 56.4 %; Nucleated Red Blood Cells % 0 %; Platelet Count 203 10^3/cmm (130-400); Red Blood Count 4.59 10^6/uL (4.1-5.3); White Blood Count 4.5 10^3/uL (4.0-10.0)
[2022-04-20 17:06] LABS: Alanine Aminotransferase 26 U/L (0-33); Albumin Level 3.8 g/dL (3.5-5.2); Alkaline Phosphatase 66 U/L (35-105); Aspartate Amino Transferase 37 U/L (0-32); C Reactive Protein 3.5 mg/L (0.0-4.9); Globulin 3.8 g/dL (1.3-4.6); Total Bilirubin 0.3 mg/dL (0.15-1.2); Total Protein 7.6 g/dL (6.6-8.7)
== END 2022-04-20 15:11 | disposition home or self-care (01) ==
PROVIDERS: PCP Family Medicine; Visit Provider Internal Medicine Rheumatology
DX: M05.79 Rheumatoid arthritis with rheumatoid factor of multiple sites without organ or systems involvement (principal); Z79.899 Other long term (current) drug therapy
CPT/HCPCS: 36415; 80076; 82565; 85025; 86140

== ENCOUNTER → 2022-08-11 12:17 | Outpatient (BNVA) | payer OTHER, SELFPAY | PROVIDERS: PCP Family Medicine; Visit Provider Internal Medicine Rheumatology | DX: Z79.899 Other long term (current) drug therapy (principal); M05.79 Rheumatoid arthritis with rheumatoid factor of multiple sites without organ or systems involvement | CPT/HCPCS: 36415; 80076; 82565; 85025; 86140 ==

== ENCOUNTER 2022-09-15 08:16 | Outpatient (CLI) | payer OTHER, SELFPAY ==
--- NOTE | 2022-09-15 08:30 | MM_ITS ---
WS: [id number] BILATERAL 3D TOMOSYNTHESIS DIGITAL SCREENING MAMMOGRAPHY WITH CAD CLINICAL INFORMATION: SCREENING HISTORY: Screening mammogram. No current complaints. COMPARISON: October 17, 2020 TECHNIQUE: Bilateral CC and MLO views. FINDINGS: The breasts are composed of scattered fibroglandular densities bilaterally. No suspicious mass, asymm etry, calcifications, or architectural distortion. No evidence of malignancy. Vascular calcification. MM/[place] [id number] IMPRESSION: BI-RADS: 2-Benign FOLLOW UP: 1 Year Follow-up Recommend return to annual screening mammography.
== END 2022-09-15 08:17 | disposition home or self-care (01) ==
LOC: RAD 08:19
PROVIDERS: PCP Family Medicine; Visit Provider Family Medicine
DX: Z12.31 Encounter for screening mammogram for malignant neoplasm of breast (principal)
CPT/HCPCS: 77063; 77067

== ENCOUNTER 2023-02-05 13:24 | Outpatient (CLI) | payer MEDICARE, OTHER, SELFPAY ==
--- NOTE | 2023-02-05 13:38 | XR_ITS ---
WS: [id number] DEXA (DUAL ENERGY X-RAY ABSORPTIOMETRY) Bone mineral density was performed using a [employer] machine. HISTORY: OSTEOPOROSIS COMPARISON: 09/16/2020 Lumbar spine BMD (L1-L4): 0.781 g/cm2 T score: -3.3 Z score: -1.3 Left forearm BMD: 0.545 g/cm2. T score: -3.8 Z score: -1.7 Compared to the prior study from 09/16/2020. Lumbar spine bone mineral density has decreased by 4.2%. IMPRESSION: OSTEOPOROSIS based upon the WHO classification for females. Significant decrease in bone mineral density within the lumbar spine since the prior study.
[2023-02-05 14:00] LABS: Basophils % 0.8 %; Eosinophils # 0.2 10^3/uL (0.0-0.8); Hematocrit 40.4 % (36-47); Lymphocytes # 1.3 10^3/uL (0.8-4.8); Lymphocytes % 34.2 %; Mean Corpuscular HGB Conc 31.4 g/dL (30-55); Mean Corpuscular Hemoglobin 27.9 pg (27-33); Mean Corpuscular Volume 88.6 fl (85-98); Mean Platelet Volume 9.5 fL (7.4-10.4); Monocytes # 0.5 10^3/uL (0.2-0.9); Monocytes % 11.9 %; Neutrophils # 1.85 10^3/uL (1.8-7.7); Neutrophils % 49.1 %; Nucleated Red Blood Cells % 0 %; Platelet Count 189 10^3/cmm (157-399); Red Blood Count 4.56 10^6/uL (3.85-5.65); Red Cell Distribution Width 14.7 % (12.1-15.1); White Blood Count 3.77 10^3/uL (3.29-11.43)
[2023-02-05 14:20] LABS: Alanine Aminotransferase 21 U/L (0-33); Albumin Level 3.5 g/dL (3.5-5.2); Alkaline Phosphatase 63 U/L (35-105); Aspartate Amino Transferase 32 U/L (0-32); C Reactive Protein 4.6 mg/L (0.0-4.9); Globulin 4.2 g/dL (1.3-4.6); Total Bilirubin 0.4 mg/dL (0.15-1.2); Total Protein 7.7 g/dL (6.6-8.7)
== END 2023-02-05 13:25 | disposition home or self-care (01) ==
PROVIDERS: Absent Provider Internal Medicine Rheumatology; PCP Family Medicine; Visit Provider Family Medicine
DX: M81.0 Age-related osteoporosis without current pathological fracture (principal); M05.79 Rheumatoid arthritis with rheumatoid factor of multiple sites without organ or systems involvement; Z79.899 Other long term (current) drug therapy
CPT/HCPCS: 36415; 77080; 80076; 82565; 85025; 86140

== ENCOUNTER → 2023-02-08 11:16 | Outpatient (BNVA) | payer MEDICARE, OTHER, SELFPAY | PROVIDERS: PCP Family Medicine; Visit Provider Internal Medicine Rheumatology | DX: Z79.899 Other long term (current) drug therapy; M05.79 Rheumatoid arthritis with rheumatoid factor of multiple sites without organ or systems involvement; Z71.89 Other specified counseling | CPT/HCPCS: 99214 ==

== ENCOUNTER 2023-02-19 08:01 | Oncology outpatient (recurring) (ONCR) | payer MEDICARE, OTHER, SELFPAY ==
[2023-02-19] MEDS: denosumab 60 mg SDV SUBCUT (09:24)
[2023-02-19 09:31] VITALS: BP 124/77; PULSE 64; RESP 17; TEMP 36.9; O2SAT 97
[2023-02-19 09:45] LABS: Calcium 9.4 mg/dL (8.5-10.5)
== END 2023-03-09 23:59 | disposition home or self-care (01) ==
LOC: ONCMED 08:01
PROVIDERS: PCP Family Medicine; Visit Provider Family Medicine
DX: M06.9 Rheumatoid arthritis, unspecified (principal)
CPT/HCPCS: 36415; 82310; 96372; J0897

== ENCOUNTER 2023-04-19 11:50 | Outpatient (CLI) | payer MEDICARE, OTHER, SELFPAY ==
--- NOTE | 2023-04-19 11:57 | XR_ITS ---
WS: [id number] Exam: XR hip LT 2-3V wo/w pel* [id number] Date/Time of Exam: 04/19/2023 12:04 PM Reason For Exam: PAIN IN LEFT HIP Comparison 03/01/2020. A total hip prosthesis is in place and unchanged in alignment. No sign of fracture or loosening. A co rtical sideplate noted along the upper lateral femur. The sideplate is stabilized with encircling cab les which have fractured. The plate may be loose but is unchanged in appearance since the prior study . Old LEFT pelvic fractures are noted. IMPRESSION: 1. Total hip arthroplasty remaining in satisfactory position. 2. Lateral cortical plate along the upper femur may be loose. Encircling cables have fractured but ov erall the appearance shows no change since 03/01/2020.
== END 2023-04-19 11:51 | disposition home or self-care (01) ==
PROVIDERS: PCP Family Medicine; Visit Provider Family Medicine
DX: M25.552 Pain in left hip (principal); Z96.642 Presence of left artificial hip joint
CPT/HCPCS: 73502

== ENCOUNTER 2023-10-26 10:54 | Outpatient (CLI) | payer MEDICARE, OTHER, SELFPAY ==
[2023-10-26 11:36] LABS: Basophils % 0.8 %; Eosinophils # 0.1 10^3/uL (0.0-0.8); Eosinophils % 2.5 %; Hematocrit 37.6 % (36-47); Lymphocytes # 1.6 10^3/uL (0.8-4.8); Mean Corpuscular HGB Conc 31.6 g/dL (30-55); Mean Corpuscular Hemoglobin 27.9 pg (27-33); Mean Corpuscular Volume 88.3 fl (85-98); Mean Platelet Volume 9.5 fL (7.4-10.4); Monocytes # 0.6 10^3/uL (0.2-0.9); Monocytes % 11.8 %; Neutrophils # 2.44 10^3/uL (1.8-7.7); Neutrophils % 51.7 %; Nucleated Red Blood Cells % 0 %; Platelet Count 198 10^3/cmm (157-399); Red Blood Count 4.26 10^6/uL (3.85-5.65); Red Cell Distribution Width 15.1 % (12.1-15.1); White Blood Count 4.73 10^3/uL (3.29-11.43)
[2023-10-26 11:58] LABS: Alanine Aminotransferase 22 U/L (0-33); Albumin Level 3.6 g/dL (3.5-5.2); Alkaline Phosphatase 59 U/L (35-105); Aspartate Amino Transferase 36 U/L (0-32); C Reactive Protein 5.5 mg/L (0.0-4.9); Globulin 4.3 g/dL (1.3-4.6); Total Bilirubin 0.4 mg/dL (0.15-1.2); Total Protein 7.9 g/dL (6.6-8.7)
[2023-10-26 12:17] LABS: Chol HDL Ratio 1.98 mg/dL (0.0-4.40); Cholesterol 115 mg/dL (0-200); HDL Cholesterol 58 mg/dL (60-100); Iron 30 ug/dL (37-145); LDL Cholesterol Calculated 47 mg/dL (50-129); Thyroid Stimulating Hormone 2.77 uIU/mL (0.27-4.20); Triglycerides 51 mg/dL (0-150); VLDL Cholestrol Calculation 10 mg/dL (0-30); Vitamin B12 859 pg/mL (232-1245)
== END 2023-10-26 10:55 | disposition home or self-care (01) ==
LOC: LAB 11:17
PROVIDERS: PCP Family Medicine; Visit Provider Internal Medicine Rheumatology
DX: M06.9 Rheumatoid arthritis, unspecified (principal); Z79.899 Other long term (current) drug therapy; D64.9 Anemia, unspecified; E78.5 Hyperlipidemia, unspecified; E03.9 Hypothyroidism, unspecified
CPT/HCPCS: 80061; 80076; 82565; 82607; 83540; 84443; 85025; 86140

== ENCOUNTER → 2023-11-03 13:13 | Outpatient (BNVA) | payer MEDICARE, OTHER, SELFPAY | PROVIDERS: PCP Family Medicine; Visit Provider Internal Medicine Rheumatology | DX: M05.79 Rheumatoid arthritis with rheumatoid factor of multiple sites without organ or systems involvement (principal); Z79.899 Other long term (current) drug therapy; Z71.89 Other specified counseling; Z71.85 Encounter for immunization safety counseling; M81.0 Age-related osteoporosis without current pathological fracture; Z96.643 Presence of artificial hip joint, bilateral | CPT/HCPCS: 99214 ==

== ENCOUNTER → 2023-12-09 12:02 | Outpatient (BNVA) | payer MEDICARE, OTHER, SELFPAY | PROVIDERS: PCP Family Medicine; Visit Provider Internal Medicine Cardiovascular Disease | DX: I65.29 Occlusion and stenosis of unspecified carotid artery (principal); I48.0 Paroxysmal atrial fibrillation; E78.5 Hyperlipidemia, unspecified; Z79.899 Other long term (current) drug therapy; Z86.73 Personal history of transient ischemic attack (TIA), and cerebral infarction without residual deficits | CPT/HCPCS: 99214 ==

== ENCOUNTER 2023-12-31 13:19 | Outpatient (CLI) | payer MEDICARE, OTHER, SELFPAY ==
--- NOTE | 2023-12-31 13:45 | USCV_ITS ---
Shailesh Hiwot Age: 73 Gender: F : 1950 Exam Date: 12/31/2023 13:27 Ordering Phys: Andres Gale MD ([email or web address]) Technologist: WING [place] [facility] [place]ication: Stenosis Risk Factors: Previous Vascular Surgery: Right Brachial BP: / Left Brachial BP: / Right Left Velocity (cm/s) Spectral Plaque Velocity (cm/s) Spectral Plaque Syst/Diast Broadening Syst/Diast Broadening 88.20/ 18.40 Prox CCA 122.10/ 24.20 122.80/24.40 Mid CCA 113.00/ 19.40 116.80/21.40 Distal CCA 97.80 / 17.20 96.20/ 22.30 Prox ICA 72.10 / 22.80 126.20/29.90 Mid ICA 158.50/ 38.10 83.00/ 23.10 Distal ICA 130.60/ 22.00 96.00 ECA 218.50 1.10 ICA/CCA 1.60 Antegrade Vertebral Antegrade 59.20/ 17.80 cm/s 60.50/ 14.30 cm/s Tri Subclavian Tri 138.5 109.1 0 0 FINDINGS Comparison:. 11/26/20 Diffuse bilateral scattered calcified plaque and intimal thickening throughout the common carotid arteries and extending through the bifurcation. Left carotid velocity is not as significant as on the prior study. No history of intervention provided. Antegrade vertebral arteries. CONCLUSIONS Bilateral ICA stenosis less than 50%. Mid carotid plaque . Dr. Masha Medina DO (Electronically Signed) Final Date: 31 December 2023 14:04 S
== END 2023-12-31 13:20 | disposition home or self-care (01) ==
LOC: RAD 13:19
PROVIDERS: PCP Family Medicine; Visit Provider Internal Medicine Cardiovascular Disease
DX: I65.23 Occlusion and stenosis of bilateral carotid arteries (principal)
CPT/HCPCS: 93880; 99214

== ENCOUNTER 2024-04-12 11:30 | Outpatient (CLI) | payer MEDICARE, OTHER, SELFPAY ==
--- NOTE | 2024-04-12 11:36 | MM_ITS ---
WS: [id number] BILATERAL SCREENING DIGITAL TOMOSYNTHESIS MAMMOGRAM WITH CAD HISTORY: SCREENING COMPARISON: 09/15/2022, 10/17/2020 Bilateral CC and MLO views with tomosynthesis and synthetic mammography submitted. Computer aided det ection analyzed. Breast composition: There are scattered areas of fibroglandular density. No suspicious masses, microc alcifications or architectural distortion. Extensive vascular calcifications in each breast. No new c luster of calcifications. MM/MM scr tomosynthesis [id number] IMPRESSION: BI-RADS: 2 - Benign. FOLLOW UP: 1 Year Follow-up
== END 2024-04-12 11:35 | disposition home or self-care (01) ==
PROVIDERS: PCP Family Medicine; Visit Provider Family Medicine
DX: Z12.31 Encounter for screening mammogram for malignant neoplasm of breast (principal); R92.323 Mammographic fibroglandular density, bilateral breasts; R92.1 Mammographic calcification found on diagnostic imaging of breast
CPT/HCPCS: 77063; 77067

== ENCOUNTER 2024-04-12 12:05 | Oncology outpatient (recurring) (ONCR) | payer MEDICARE, OTHER, SELFPAY ==
[2024-04-12] MEDS: denosumab 60 mg SDV SUBCUT (13:49)
== END 2024-05-09 23:59 | disposition home or self-care (01) ==
PROVIDERS: PCP Family Medicine; Visit Provider Family Medicine
DX: Z79.899 Other long term (current) drug therapy (principal); M06.9 Rheumatoid arthritis, unspecified
CPT/HCPCS: 96372; J0897

== ENCOUNTER → 2024-06-12 10:31 | Outpatient (BNVA) | payer MEDICARE, OTHER, SELFPAY | PROVIDERS: PCP Family Medicine; Visit Provider Nurse Practitioner Family | DX: I48.0 Paroxysmal atrial fibrillation (principal); I65.29 Occlusion and stenosis of unspecified carotid artery; E78.5 Hyperlipidemia, unspecified; Z86.73 Personal history of transient ischemic attack (TIA), and cerebral infarction without residual deficits; R42 Dizziness and giddiness | CPT/HCPCS: 99214 ==

== ENCOUNTER 2024-07-10 15:34 | Outpatient (CLI) | payer MEDICARE, OTHER, SELFPAY ==
[2024-07-10 16:00] LABS: Basophils % 0.4 %; Eosinophils # 0.1 10^3/uL (0.0-0.8); Eosinophils % 2.7 %; Hematocrit 36.3 % (36-47); Lymphocytes # 1.5 10^3/uL (0.8-4.8); Lymphocytes % 31.4 %; Mean Corpuscular HGB Conc 32.2 g/dL (30-55); Mean Corpuscular Hemoglobin 27.5 pg (27-33); Mean Corpuscular Volume 85.2 fl (85-98); Mean Platelet Volume 8.9 fL (7.4-10.4); Monocytes # 0.7 10^3/uL (0.2-0.9); Monocytes % 14.3 %; Neutrophils # 2.42 10^3/uL (1.8-7.7); Neutrophils % 51.2 %; Nucleated Red Blood Cells % 0 %; Platelet Count 254 10^3/cmm (157-399); Red Blood Count 4.26 10^6/uL (3.85-5.65); Red Cell Distribution Width 15.3 % (12.1-15.1); White Blood Count 4.74 10^3/uL (3.29-11.43)
[2024-07-10 16:11] LABS: Erythrocyte Sedimentation Rate 64 mm/hr (0-15)
[2024-07-10 16:57] LABS: Alanine Aminotransferase 15 U/L (0-33); Albumin Level 3.5 g/dL (3.5-5.2); Alkaline Phosphatase 59 U/L (35-105); Aspartate Amino Transferase 28 U/L (0-32); C Reactive Protein 12.9 mg/L (0.0-4.9); Globulin 4.2 g/dL (1.3-4.6); Total Bilirubin 0.3 mg/dL (0.15-1.2); Total Protein 7.7 g/dL (6.6-8.7)
== END 2024-07-10 15:35 | disposition home or self-care (01) ==
LOC: LAB 15:38
PROVIDERS: PCP Family Medicine; Visit Provider Internal Medicine Rheumatology
DX: M06.9 Rheumatoid arthritis, unspecified (principal); Z79.899 Other long term (current) drug therapy
CPT/HCPCS: 36415; 80076; 82565; 85025; 85651; 86140

== ENCOUNTER 2024-10-06 10:13 | Outpatient (CLI) | payer MEDICARE, OTHER, SELFPAY ==
[2024-10-06 10:38] LABS: Basophils % 0.6 %; Eosinophils # 0.2 10^3/uL (0.0-0.8); Eosinophils % 4.2 %; Hematocrit 38.3 % (36-47); Lymphocytes % 38.6 %; Mean Corpuscular HGB Conc 31.1 g/dL (30-55); Mean Corpuscular Hemoglobin 26.7 pg (27-33); Mean Corpuscular Volume 85.9 fl (85-98); Mean Platelet Volume 9.3 fL (7.4-10.4); Monocytes # 0.7 10^3/uL (0.2-0.9); Monocytes % 12.5 %; Neutrophils % 44.1 %; Nucleated Red Blood Cells % 0 %; Platelet Count 211 10^3/cmm (157-399); Red Blood Count 4.46 10^6/uL (3.85-5.65); Red Cell Distribution Width 14.7 % (12.1-15.1); White Blood Count 5.21 10^3/uL (3.29-11.43)
[2024-10-06 10:39] LABS: Erythrocyte Sedimentation Rate 64 mm/hr (0-15)
[2024-10-06 10:55] LABS: Alanine Aminotransferase 17 U/L (0-33); Albumin Level 3.5 g/dL (3.5-5.2); Alkaline Phosphatase 62 U/L (35-105); Aspartate Amino Transferase 33 U/L (0-32); C Reactive Protein 4.7 mg/L (0.0-4.9); Globulin 4.6 g/dL (1.3-4.6); Total Bilirubin 0.3 mg/dL (0.15-1.2); Total Protein 8.1 g/dL (6.6-8.7)
== END 2024-10-06 10:14 | disposition home or self-care (01) ==
LOC: LAB 10:15
PROVIDERS: PCP Family Medicine; Visit Provider Internal Medicine Rheumatology
DX: Z79.899 Other long term (current) drug therapy (principal)
CPT/HCPCS: 36415; 80076; 82565; 85025; 85651; 86140

== ENCOUNTER → 2024-10-10 09:28 | Outpatient (BNVA) | payer MEDICARE, OTHER, SELFPAY | PROVIDERS: PCP Family Medicine; Visit Provider Internal Medicine Rheumatology | DX: M05.79 Rheumatoid arthritis with rheumatoid factor of multiple sites without organ or systems involvement (principal); Z79.899 Other long term (current) drug therapy; Z71.89 Other specified counseling | CPT/HCPCS: 99214 ==

== ENCOUNTER → 2024-11-23 13:59 | Outpatient (BNVA) | payer MEDICARE, OTHER, SELFPAY | PROVIDERS: PCP Family Medicine; Visit Provider Internal Medicine Cardiovascular Disease | DX: I48.91 Unspecified atrial fibrillation (principal); I10 Essential (primary) hypertension; M06.9 Rheumatoid arthritis, unspecified; Z86.73 Personal history of transient ischemic attack (TIA), and cerebral infarction without residual deficits | CPT/HCPCS: 99214 ==

== ENCOUNTER 2025-03-12 12:38 | Outpatient (CLI) | payer MEDICARE, OTHER, SELFPAY ==
[2025-03-12 14:42] LABS: Hematocrit 33.9 % (36-47); Hemoglobin 10.50 g/dL (11.27-16.99); Mean Corpuscular HGB Conc 31.0 g/dL (30-55); Mean Corpuscular Hemoglobin 26.1 pg (27-33); Mean Corpuscular Volume 84.3 fl (85-98); Nucleated Red Blood Cells % 0 %; Platelet Count 219 10^3/cmm (157-399); Red Blood Count 4.02 10^6/uL (3.85-5.65); White Blood Count 5.21 10^3/uL (3.29-11.43)
[2025-03-12 15:28] LABS: Alanine Aminotransferase 18 U/L (0-33); Albumin Level 3.3 g/dL (3.5-5.2); Alkaline Phosphatase 57 U/L (35-105); Anion Gap 12.1 (5-19); Aspartate Amino Transferase 33 U/L (0-32); Blood Urea Nitrogen 12 mg/dL (8-23); Calcium 10.6 mg/dL (8.5-10.5); Carbon Dioxide 28 mmol/L (22-29); Chloride 95 mmol/L (98-107); Cholesterol 108 mg/dL (0-200); Globulin 4.5 g/dL (1.3-4.6); Glucose 116 mg/dL (65-115); HDL Cholesterol 59 mg/dL (60-100); Iron 30 ug/dL (37-145); Osmolality Calculated 273 mOsm/kg (285-295); Potassium 4.1 mmol/L (3.5-5.1); Sodium 131 mmol/L (136-145); Thyroid Stimulating Hormone 2.45 uIU/mL (0.27-4.20); Total Iron Binding Capacity 279 mcg/dl; Total Protein 7.8 g/dL (6.6-8.7); Triglycerides 42 mg/dL (0-150); Unsaturated Iron Binding 249 ug/dL (112-347)
[2025-03-12 16:00] LABS: Free T4 Free Thyroxine 1.14 ng/dL (0.82-1.77)
== END 2025-03-12 12:39 | disposition home or self-care (01) ==
LOC: LAB 12:44
PROVIDERS: PCP Family Medicine; Visit Provider Internal Medicine Rheumatology
DX: Z79.899 Other long term (current) drug therapy (principal); E55.9 Vitamin D deficiency, unspecified; E78.5 Hyperlipidemia, unspecified; E03.9 Hypothyroidism, unspecified
CPT/HCPCS: 36415; 80053; 80061; 82248; 82306; 83540; 83550; 84439; 84443; 85025; 85651; 86140

== ENCOUNTER 2025-03-30 14:37 | Outpatient (CLI) | payer MEDICARE, OTHER, SELFPAY ==
--- NOTE | 2025-03-30 14:46 | XR_ITS ---
WS: [id number] SCREENING DEXA SCAN [employer] CLINICAL INFORMATION: AGE RELATED OSTEOPOROSIS W/P CURRENT FX COMPARISON: 2022 FINDINGS: The L1-L4 bone mineral density measures 0.791 g/cm2. This corresponds to a T score score of -3.2 and Z score of -1.1. Left forearm bone mineral density measures 0.493. This corresponds to a T score of -4.4 and Z score of -2.1. XR/XR DEXA axial skeleton* [id number] IMPRESSION: Osteoporosis lumbar spine. Osteoporosis LEFT forearm.
== END 2025-03-30 14:38 | disposition home or self-care (01) ==
LOC: RAD 14:40
PROVIDERS: PCP Nurse Practitioner Family; Visit Provider Nurse Practitioner Family
DX: Z13.820 Encounter for screening for osteoporosis (principal); M81.0 Age-related osteoporosis without current pathological fracture; Z78.0 Asymptomatic menopausal state
CPT/HCPCS: 77080

== ENCOUNTER → 2025-04-09 10:10 | Outpatient (BNVA) | payer MEDICARE, OTHER, SELFPAY | PROVIDERS: PCP Nurse Practitioner Family; Visit Provider Internal Medicine Rheumatology | DX: M05.79 Rheumatoid arthritis with rheumatoid factor of multiple sites without organ or systems involvement (principal); Z79.899 Other long term (current) drug therapy; Z71.85 Encounter for immunization safety counseling; M81.0 Age-related osteoporosis without current pathological fracture | CPT/HCPCS: 99214 ==

== ENCOUNTER 2025-04-26 11:09 | Oncology outpatient (recurring) (ONCR) | payer MEDICARE, OTHER, SELFPAY ==
[2025-04-26] MEDS: denosumab-bbdz 60 MG Syringe SUBCUT (11:35)
[2025-04-26 12:28] VITALS: BP 114/67; PULSE 76; RESP 16; TEMP 36.6
== END 2025-05-09 23:59 | disposition home or self-care (01) ==
PROVIDERS: PCP Nurse Practitioner Family; Visit Provider Internal Medicine Rheumatology
DX: M81.0 Age-related osteoporosis without current pathological fracture (principal); Z79.899 Other long term (current) drug therapy
CPT/HCPCS: 96372; Q5136